=== PATIENT | male | born 1955 | race Two or more races ===

== ENCOUNTER → 2017-05-30 | Outpatient (CLI) | payer BC ==
[2017-05-30 13:31] LABS: Basophils # (auto) 0 uL; Basophils % (auto) 0.5 % (0.0-2.0); Eosinophils # (auto) 0.3 uL; Eosinophils % (auto) 2.9 % (0.0-7.0); Hematocrit 50.9 % (41.0-53.0); Hemoglobin 17.2 g/dL (13.5-17.5); Lymphocytes # (auto) 2.5 uL; Mean Corpuscular Hemoglobin 29.2 pg (28.0-32.0); Mean Corpuscular Hgb Conc. 33.8 g/dL (32.0-36.0); Mean Corpuscular Volume 86.4 fL (80.0-100.0); Monocytes # (auto) 0.6 uL; Monocytes % (auto) 6.4 % (0.0-12.0); Neutrophils # (auto) 5.5 uL; Neutrophils % (auto) 62.2 % (37.0-80.0); Platelet Count (auto) 187 10^3/uL (140-450); Red Cell Distribution Width 15.5 % (11.8-14.3); White Blood Cell 8.9 10^3/uL (4.4-10.8)
[2017-05-30 13:49] LABS: Urine Bilirubin Negative (Negative); Urine Blood Negative /uL (Negative); Urine Color Yellow (Yellow); Urine Glucose 4+ mg/dL (Normal); Urine Ketone 1+ (Negative); Urine Nitrite Negative (Negative); Urine RBC <1 /hpf (0 - 3); Urine Urobilinogen Normal (Negative)
[2017-05-30 14:03] LABS: Albumin 4.3 g/dL (3.4-5.0); Bilirubin, Total 0.7 mg/dL (0.2-1.0); Calcium 9.4 mg/dL (8.5-10.1); Total Protein 8.8 g/dL (6.4-8.2)
== END | disposition home or self-care (01) ==
LOC: LAB 12:59
PROVIDERS: ATTEND Internal Medicine
DX: E10.9 Type 1 diabetes mellitus without complications (principal); I10 Essential (primary) hypertension; E78.00 Pure hypercholesterolemia, unspecified; Z79.899 Other long term (current) drug therapy
CPT/HCPCS: 36415; 80053; 80061; 81001; 82043; 82607; 83036; 84146; 84153; 84403; 84439; 84443; 85025; 85652

== ENCOUNTER → 2017-08-11 | Outpatient (CLI) | payer BC ==
[~2017-08-11] MED LIST: ASPI-231 PO; ATOR1TAB PO; ATOR40TA52 PO; CARV3.1240 PO; ENAL10TA86 PO; FURO40TA4 PO; GLIP-116 PO; METF-371 PO; NITR0.4S29 SL; RANO1000 PO
[2017-08-11 11:25] LABS: Albumin 3.9 g/dL (3.4-5.0); BUN/Creatinine Ratio 18.4; Bilirubin, Total 0.8 mg/dL (0.2-1.0); CRP High Sensitivity 0.78 mg/dL (< 0.3); Potassium 4.3 mmol/L (3.5-5.1); Total Protein 8.1 g/dL (6.4-8.2)
[2017-08-11 11:58] LABS: Urine Bacteria NONE SEEN /hpf (None Seen); Urine Blood Negative /uL (Negative); Urine Specific Gravity 1.029 (1.001-1.035); Urine WBC 8 /hpf (0 - 3)
== END | disposition home or self-care (01) ==
LOC: LAB 10:31
PROVIDERS: ATTEND Internal Medicine
DX: I10 Essential (primary) hypertension (principal); N48.1 Balanitis; N47.1 Phimosis
CPT/HCPCS: 36415; 80053; 80061; 81001; 83036; 84153; 84443; 86141

== ENCOUNTER → 2017-09-07 | Outpatient (CLI) | payer BC ==
[~2017-09-07] MED LIST changes: +OPTISON 3ml Vial for INJ IV ONE
[2017-09-07 10:27] VITALS: BP 175/98
== END | disposition home or self-care (01) ==
LOC: XY 08:11
PROVIDERS: ATTEND Internal Medicine
DX: I25.10 Atherosclerotic heart disease of native coronary artery without angina pectoris (principal)
CPT/HCPCS: 93017; 93306; Q9956

== ENCOUNTER → 2017-10-12 | Outpatient (CLI) | payer BC ==
[~2017-10-12] MED LIST changes: -OPTISON 3ml Vial for INJ IV ONE
[2017-10-12 10:42] LABS: Basophils # (auto) 0 uL; Basophils % (auto) 0.3 % (0.0-2.0); Eosinophils # (auto) 0.4 uL; Eosinophils % (auto) 3.5 % (0.0-7.0); Hemoglobin 15.7 g/dL (13.5-17.5); Lymphocytes # (auto) 2.3 uL; Lymphocytes % (auto) 21.8 % (10.0-50.0); Mean Corpuscular Hemoglobin 29.3 pg (28.0-32.0); Mean Corpuscular Hgb Conc. 34.2 g/dL (32.0-36.0); Mean Corpuscular Volume 85.7 fL (80.0-100.0); Monocytes # (auto) 0.7 uL; Neutrophils # (auto) 7.1 uL; Neutrophils % (auto) 67.4 % (37.0-80.0); Platelet Count (auto) 231 10^3/uL (140-450); Red Blood Cells 5.37 10^6/uL (4.5-5.90); Red Cell Distribution Width 14.4 % (11.8-14.3); White Blood Cell 10.5 10^3/uL (4.4-10.8)
[2017-10-12 10:50] LABS: INR 1.22 (0.9-1.15); Partial Thromboplastin Time 30.7 sec (22.64-33.71); Prothrombin Time 13.3 sec (9.37-12.3)
[2017-10-12 11:45] LABS: Albumin 3.9 g/dL (3.4-5.0); BUN/Creatinine Ratio 15.6; Bilirubin, Total 0.6 mg/dL (0.2-1.0); Calcium 8.7 mg/dL (8.5-10.1); Total Protein 8.1 g/dL (6.4-8.2)
== END | disposition home or self-care (01) ==
LOC: LAB 10:03
PROVIDERS: ATTEND Internal Medicine
DX: Z01.812 Encounter for preprocedural laboratory examination (principal); I20.9 Angina pectoris, unspecified; I25.9 Chronic ischemic heart disease, unspecified; E10.9 Type 1 diabetes mellitus without complications
CPT/HCPCS: 36415; 80053; 85025; 85610; 85730

== ENCOUNTER 2017-10-13 06:55 | Inpatient (IN) | payer BC ==
[~2017-10-13] VITALS: Ht 170.2 cm; Wt 98.0 kg
[~2017-10-13 06:55] MED LIST changes: -ATOR1TAB PO; -FURO40TA4 PO
[2017-10-13] MEDS ORDERED: IODIXANOL 320MG/ML 100ML BTL IV ONE ×2 (07:49→08:25)
[2017-10-13] MEDS ORDERED: LIDOCAINE HCL 2 %PF INJ 10ML AMP IJ ONE (07:49)
[2017-10-13] MEDS ORDERED: MIDAZOLAM HCL 1MG/1ML-2 ML VIAL ONE (07:53)
[2017-10-13] MEDS ORDERED: SODIUM CHL 0.9% 50 ML ONE (07:53)
[2017-10-13] MEDS ORDERED: fentaNYL CITRATE 100 MCG/2 ML VL ONE (07:53)
[2017-10-13] MEDS ORDERED: ANGIOMAX 250 MG VIAL IV ONE (07:54)
[2017-10-13] MEDS ORDERED: HEPARIN SODIUM (PORCINE) 5000 UNITS/ML 1ML VIAL ONE (09:03)
[2017-10-13] MEDS ORDERED: SODIUM CHLORIDE 0.9% 1,000 ML IV SCH (09:26)
[2017-10-13] MEDS ORDERED: HYDROcodone-ACET 5/325MG TAB PO PRN (09:30)
[2017-10-13] MEDS ORDERED: MORPHINE SULF INJ 2 MG/ML SYRINGE 1ML IV PRN (09:30)
[2017-10-13] MEDS ORDERED: ONDANSETRON HCL 4 MG/2 ML VIAL IV PRN (09:30)
[2017-10-13] MEDS ORDERED: ZOLPIDEM TARTRATE 5 MG TAB PO PRN (09:30)
[2017-10-13] MEDS ORDERED: LORazepam 0.5 MG TAB PO PRN (09:30)
[2017-10-13] MEDS ORDERED: ACETAMINOPHEN 500 MG TAB PO PRN (09:30)
[2017-10-13] MEDS ORDERED: NITROGLYCERIN 0.4 MG SL TAB SL PRN ×3 (09:30→10:15)
[2017-10-13] MEDS ORDERED: MORPHINE SULFATE 4 MG/ML SYR/VIAL IV PRN ×2 (09:30→10:15)
[2017-10-13] MEDS ORDERED: HEPARIN DRIP/D5W 100UNITS/ML 250 ML IV SCH (09:41)
[2017-10-13] MEDS ORDERED: DEXTROSE (50%) 50ML SYRG IV PRN (09:45)
[2017-10-13] MEDS ORDERED: NITROGLYCERIN 0.4 MG SL TAB SL SCH (09:45)
[2017-10-13] MEDS ORDERED: PATIENTS OWN MEDICATION (Glipizide 10 MG) PO SCH (10:00)
[2017-10-13] MEDS ORDERED: ceFAZolin 1GM/50ML 50 ML IV ONE (10:15)
[2017-10-13] MEDS ORDERED: ACCU-CHEK COMFORT CURVE STRIP VI ONE ×2 (10:15→22:00)
[2017-10-13] MEDS ORDERED: VANCOMYCIN 1GM/250ML 250 ML IV ONE ×2 (10:15→22:00)
[2017-10-13] MEDS: ENALAPRIL MALEATE 10 MG TAB PO SCH (11:15)
[2017-10-13] MEDS: RANOLAZINE ER 500 MG TAB PO SCH ×2 (11:15→11:22)
[2017-10-13] MEDS: CARVEDILOL 3.125 MG TAB PO SCH ×2 (11:15→21:47)
[2017-10-13] MEDS ORDERED: OPTISON 3ml Vial for INJ IV ONE (11:18)
[2017-10-13] MEDS: ACCU-CHEK COMFORT CURVE STRIP VI SCH ×3 (11:30→22:00)
[2017-10-13] MEDS: InsuLIN REG 1unit/0.01ml Soln (100units/ml) SC SCH ×3 (12:00→21:52)
[2017-10-13 14:31] VITALS: BP 126/77
[2017-10-13 14:48] LABS: Basophils # (auto) 0 uL; Basophils % (auto) 0.5 % (0.0-2.0); Eosinophils # (auto) 0.3 uL; Eosinophils % (auto) 4.3 % (0.0-7.0); Hematocrit 43.5 % (41.0-53.0); Hemoglobin 14.7 g/dL (13.5-17.5); Lymphocytes # (auto) 1.9 uL; Lymphocytes % (auto) 23.8 % (10.0-50.0); Mean Corpuscular Hemoglobin 29.3 pg (28.0-32.0); Mean Corpuscular Hgb Conc. 33.8 g/dL (32.0-36.0); Mean Corpuscular Volume 86.5 fL (80.0-100.0); Monocytes # (auto) 0.7 uL; Monocytes % (auto) 8.6 % (0.0-12.0); Neutrophils % (auto) 62.8 % (37.0-80.0); Nucleated Red Blood Cells % 0.1 %; Platelet Count (auto) 215 10^3/uL (140-450); Red Blood Cells 5.03 10^6/uL (4.5-5.90); Red Cell Distribution Width 14.4 % (11.8-14.3); White Blood Cell 7.9 10^3/uL (4.4-10.8)
[2017-10-13 15:05] LABS: BUN/Creatinine Ratio 14.2
[2017-10-13 15:14] LABS: INR 1.23 (0.9-1.15); Partial Thromboplastin Time 31.5 sec (22.64-33.71); Prothrombin Time 13.4 sec (9.37-12.3)
[2017-10-13 15:55] VITALS: BP 130/77
[2017-10-13 20:00] VITALS: BP_SYST 108; BP_SYST 134; BP_DIAS 65; BP_DIAS 79
[2017-10-13] MEDS: ATORVASTATIN 20 MG TAB PO SCH (21:46)
[2017-10-13] MEDS ORDERED: ASCORBIC ACID 500 MG TAB PO ONE ×2 (22:00)
[2017-10-13] MEDS ORDERED: AZTREONAM 1GM INJ 1 GM in D5W 5% 50 ML IV ONE (22:00)
[2017-10-14 02:00] LABS: INR 1.27 (0.9-1.15); Partial Thromboplastin Time 33.4 sec (22.64-33.71); Prothrombin Time 13.9 sec (9.37-12.3)
[2017-10-14] MEDS ORDERED: CHLORHEXIDINE 4% TOPICAL soln 118ML TOP ONE ×2 (02:00)
[2017-10-14] MEDS ORDERED: HEPARIN SODIUM (PORCINE) 5000 UNITS/ML 1ML VIAL IV ONE (02:15)
[2017-10-14 05:00] VITALS: BP 123/79
[2017-10-14] MEDS: InsuLIN REG 1unit/0.01ml Soln (100units/ml) SC SCH ×4 (05:50→21:43)
[2017-10-14] MEDS: ACCU-CHEK COMFORT CURVE STRIP VI SCH ×4 (05:51→21:35)
[2017-10-14 08:17] LABS: Urine Bacteria NONE SEEN /hpf (None Seen); Urine Blood Negative /uL (Negative); Urine Specific Gravity 1.018 (1.001-1.035); Urine WBC 1 /hpf (0 - 3)
[2017-10-14 09:00] VITALS: BP 150/86
[2017-10-14] MEDS ORDERED: glipiZIDE 5 MG TAB PO SCH (10:00)
[2017-10-14] MEDS: CARVEDILOL 3.125 MG TAB PO SCH ×2 (10:05→21:34)
[2017-10-14] MEDS: ENALAPRIL MALEATE 10 MG TAB PO SCH (10:07)
[2017-10-14] MEDS: glipiZIDE 5 MG TAB PO SCH (10:09)
[2017-10-14] MEDS ORDERED: CHLORHEXIDINE 0.12% ORAL rinse 473ML MT ONE ×2 (10:15→22:00)
[2017-10-14 10:29] LABS: INR 1.24 (0.9-1.15); Partial Thromboplastin Time 45.7 sec (22.64-33.71); Prothrombin Time 13.5 sec (9.37-12.3)
[2017-10-14 11:23] VITALS: BP 149/83
[2017-10-14] MEDS: HEPARIN DRIP/D5W 100UNITS/ML 250 ML IV SCH (11:23)
[2017-10-14] MEDS: RANOLAZINE ER 500 MG TAB PO SCH ×2 (13:37→21:34)
[2017-10-14 16:18] VITALS: BP 152/85
[2017-10-14 17:16] LABS: INR 1.24 (0.9-1.15); Partial Thromboplastin Time 53.9 sec (22.64-33.71); Prothrombin Time 13.5 sec (9.37-12.3)
[2017-10-14] MEDS: ATORVASTATIN 20 MG TAB PO SCH (21:34)
[2017-10-14 22:00] VITALS: BP 135/77
[2017-10-14 23:52] LABS: INR 1.28 (0.9-1.15); Partial Thromboplastin Time 58.8 sec (22.64-33.71)
[2017-10-15] MEDS: HEPARIN DRIP/D5W 100UNITS/ML 250 ML IV SCH ×2 (03:20→18:08)
[2017-10-15 05:00] VITALS: BP 119/79
[2017-10-15 06:19] LABS: Basophils # (auto) 0.1 uL; Basophils % (auto) 0.6 % (0.0-2.0); Eosinophils # (auto) 0.4 uL; Eosinophils % (auto) 3.5 % (0.0-7.0); Hematocrit 43.9 % (41.0-53.0); Hemoglobin 15.3 g/dL (13.5-17.5); Lymphocytes # (auto) 2.9 uL; Lymphocytes % (auto) 25.4 % (10.0-50.0); Mean Corpuscular Hemoglobin 29.9 pg (28.0-32.0); Mean Corpuscular Hgb Conc. 34.8 g/dL (32.0-36.0); Mean Corpuscular Volume 85.9 fL (80.0-100.0); Monocytes # (auto) 0.9 uL; Monocytes % (auto) 7.7 % (0.0-12.0); Neutrophils # (auto) 7.1 uL; Neutrophils % (auto) 62.8 % (37.0-80.0); Platelet Count (auto) 203 10^3/uL (140-450); Red Blood Cells 5.11 10^6/uL (4.5-5.90); Red Cell Distribution Width 14.4 % (11.8-14.3); White Blood Cell 11.3 10^3/uL (4.4-10.8)
[2017-10-15] MEDS: ACCU-CHEK COMFORT CURVE STRIP VI SCH ×4 (06:19→21:53)
[2017-10-15] MEDS: InsuLIN REG 1unit/0.01ml Soln (100units/ml) SC SCH ×4 (06:22→22:00)
[2017-10-15 06:36] LABS: INR 1.26 (0.9-1.15); Partial Thromboplastin Time 62.7 sec (22.64-33.71); Prothrombin Time 13.8 sec (9.37-12.3)
[2017-10-15 08:00] VITALS: BP 116/78
[2017-10-15] MEDS: glipiZIDE 5 MG TAB PO SCH (10:03)
[2017-10-15] MEDS: CARVEDILOL 3.125 MG TAB PO SCH ×2 (10:04→21:53)
[2017-10-15] MEDS: RANOLAZINE ER 500 MG TAB PO SCH ×2 (10:04→21:53)
[2017-10-15] MEDS: ENALAPRIL MALEATE 10 MG TAB PO SCH (10:04)
[2017-10-15 12:00] VITALS: BP 129/78
[2017-10-15 17:30] VITALS: BP 141/86
[2017-10-15 20:00] VITALS: BP 133/86
[2017-10-15] MEDS: ATORVASTATIN 20 MG TAB PO SCH (21:53)
[2017-10-15 22:00] VITALS: BP 133/86
[2017-10-16] VITALS (18 sets, daily range): BP systolic 115–149; BP diastolic 63–86
[2017-10-16 05:38] LABS: Basophils # (auto) 0 uL; Basophils % (auto) 0.3 % (0.0-2.0); Eosinophils # (auto) 0.4 uL; Eosinophils % (auto) 3.3 % (0.0-7.0); Hematocrit 45.2 % (41.0-53.0); Hemoglobin 15.5 g/dL (13.5-17.5); Lymphocytes # (auto) 2.4 uL; Lymphocytes % (auto) 21.5 % (10.0-50.0); Mean Corpuscular Hemoglobin 29.3 pg (28.0-32.0); Mean Corpuscular Hgb Conc. 34.2 g/dL (32.0-36.0); Mean Corpuscular Volume 85.6 fL (80.0-100.0); Monocytes # (auto) 0.8 uL; Monocytes % (auto) 6.9 % (0.0-12.0); Neutrophils # (auto) 7.6 uL; Nucleated Red Blood Cells % 0.1 %; Platelet Count (auto) 195 10^3/uL (140-450); Red Blood Cells 5.28 10^6/uL (4.5-5.90); Red Cell Distribution Width 14.5 % (11.8-14.3); White Blood Cell 11.2 10^3/uL (4.4-10.8)
[2017-10-16 05:55] LABS: INR 1.25 (0.9-1.15); Prothrombin Time 13.7 sec (9.37-12.3)
[2017-10-16 05:56] LABS: Partial Thromboplastin Time 85.7 sec (22.64-33.71)
[2017-10-16] MEDS: ACCU-CHEK COMFORT CURVE STRIP VI SCH ×4 (06:05→21:23)
[2017-10-16] MEDS: InsuLIN REG 1unit/0.01ml Soln (100units/ml) SC SCH ×4 (06:05→21:23)
[2017-10-16] MEDS: glipiZIDE 5 MG TAB PO SCH (09:58)
[2017-10-16] MEDS: CARVEDILOL 3.125 MG TAB PO SCH ×2 (09:59→21:19)
[2017-10-16] MEDS: ENALAPRIL MALEATE 10 MG TAB PO SCH (09:59)
[2017-10-16] MEDS: RANOLAZINE ER 500 MG TAB PO SCH ×2 (09:59→21:22)
[2017-10-16] MEDS: HEPARIN DRIP/D5W 100UNITS/ML 250 ML IV SCH (10:12)
[2017-10-16] MEDS ORDERED: FURO40TA4 PO (12:11)
[2017-10-16 13:04] LABS: INR 1.28 (0.9-1.15)
[2017-10-16 13:09] LABS: Partial Thromboplastin Time 81.5 sec (22.64-33.71)
[2017-10-16] MEDS ORDERED: HEPARIN DRIP/D5W 100UNITS/ML 250 ML IV SCH (13:45)
[2017-10-16 20:03] LABS: INR 1.27 (0.9-1.15); Partial Thromboplastin Time 56.8 sec (22.64-33.71); Prothrombin Time 13.9 sec (9.37-12.3)
[2017-10-16] MEDS: ATORVASTATIN 20 MG TAB PO SCH (21:18)
[2017-10-16] MEDS ORDERED: ASCORBIC ACID 500 MG TAB PO ONE (22:00)
[2017-10-17] VITALS (62 sets, daily range): BP systolic 27–155; BP diastolic 14–89
[2017-10-17 01:44] LABS: Basophils # (auto) 0.1 uL; Basophils % (auto) 0.7 % (0.0-2.0); Eosinophils # (auto) 0.4 uL; Eosinophils % (auto) 3.5 % (0.0-7.0); Hematocrit 45.3 % (41.0-53.0); Hemoglobin 15.4 g/dL (13.5-17.5); Lymphocytes % (auto) 28.6 % (10.0-50.0); Mean Corpuscular Hemoglobin 29.3 pg (28.0-32.0); Mean Corpuscular Volume 86.2 fL (80.0-100.0); Monocytes # (auto) 0.8 uL; Monocytes % (auto) 7.7 % (0.0-12.0); Neutrophils # (auto) 6.2 uL; Neutrophils % (auto) 59.5 % (37.0-80.0); Platelet Count (auto) 204 10^3/uL (140-450); Red Blood Cells 5.25 10^6/uL (4.5-5.90); Red Cell Distribution Width 14.3 % (11.8-14.3); White Blood Cell 10.4 10^3/uL (4.4-10.8)
[2017-10-17 02:01] LABS: Albumin 3.7 g/dL (3.4-5.0); Calcium 9.1 mg/dL (8.5-10.1); Potassium 4.3 mmol/L (3.5-5.1)
[2017-10-17 02:03] LABS: INR 1.24 (0.9-1.15); Partial Thromboplastin Time 61.8 sec (22.64-33.71); Prothrombin Time 13.6 sec (9.37-12.3)
[2017-10-17 02:04] LABS: Bilirubin, Total 0.6 mg/dL (0.2-1.0); Total Protein 7.8 g/dL (6.4-8.2)
[2017-10-17] MEDS ORDERED: CHLORHEXIDINE 4% TOPICAL soln 118ML TOP ONE (03:00)
[2017-10-17] MEDS ORDERED: CHLORHEXIDINE 0.12% ORAL rinse 473ML MT ONE (06:00)
[2017-10-17] MEDS ORDERED: LIDOCAINE HCL 2 %PF INJ 10ML AMP IJ ONE (06:31)
[2017-10-17] MEDS ORDERED: NEOMYCIN-BACITRACIN-POLYM 15GM TOP OINT TOP ONE (06:41)
[2017-10-17] MEDS ORDERED: PAPAVERINE HCL 60 MG/2 ML 2ML VIAL ONE (06:41)
[2017-10-17] MEDS ORDERED: HEPARIN 1,000 UNITS/ml 1ML VIAL ONE (06:41)
[2017-10-17] MEDS ORDERED: BACITRACIN INJ 50000 UNIT VIAL ONE (06:41)
[2017-10-17] MEDS: InsuLIN REG 1unit/0.01ml Soln (100units/ml) SC SCH (06:41)
[2017-10-17] MEDS: ACCU-CHEK COMFORT CURVE STRIP VI SCH ×8 (06:41→23:24)
[2017-10-17] MEDS ORDERED: ATROPINE SULFATE 0.4 MG/1 ML VIAL ONE (06:59)
[2017-10-17] MEDS ORDERED: ACCU-CHEK COMFORT CURVE STRIP VI ONE (07:00)
[2017-10-17] MEDS ORDERED: PHENYLEPHRINE HCL 10 MG/ML VL ONE (07:01)
[2017-10-17] MEDS ORDERED: EPINEPHrine HCL 1 MG/10 ML SYRG ONE (07:01)
[2017-10-17] MEDS ORDERED: ALBUMIN 25% IV ONE (07:16)
[2017-10-17] MEDS ORDERED: AZTREONAM 1GM INJ 1 GM in D5W 5% 50 ML IV ONE (08:00)
[2017-10-17] MEDS ORDERED: VANCOMYCIN 1GM/250ML 250 ML IV ONE (08:00)
[2017-10-17] MEDS ORDERED: MIDAZOLAM HCL 1MG/1ML-2 ML VIAL ONE (08:06)
[2017-10-17] MEDS ORDERED: AMINOCAPROIC ACID 5 GM/20 ML VL IV ONE (08:55)
[2017-10-17] MEDS ORDERED: MAGNESIUM SULF 50% 40 MEQ/10 ML VL IV ONE (08:55)
[2017-10-17] MEDS ORDERED: CALCIUM CHLOR(10%) 100MG/ML 10ML SYRINGE IV ONE (08:55)
[2017-10-17] MEDS ORDERED: PHENYLEPHRINE HCL 10 MG/ML VL IV ONE (08:55)
[2017-10-17] MEDS ORDERED: LIDOCAINE 50MG/5ML INJ 5ML SYRINGE IV ONE (08:55)
[2017-10-17] MEDS ORDERED: DEXAMETHASONE SODIUM PHOSP 120 MG/30ml VIAL IV ONE (08:55)
[2017-10-17] MEDS ORDERED: SODIUM BICARBONATE 8.4 % INJ 50ML VIAL IV ONE (08:55)
[2017-10-17] MEDS ORDERED: POTASSIUM CHL 2MEQ/ML 20ML IV ONE (08:55)
[2017-10-17] MEDS ORDERED: ADENOSINE 12 MG/4 ML INJ IV ONE (08:55)
[2017-10-17] MEDS ORDERED: EPINEPHrine HCL 4 MG in D5W 5% 250 ML IV ONE (09:00)
[2017-10-17] MEDS ORDERED: AMINOCAPROIC ACID 10 GM in SODIUM CHL 0.9% 100 ML IV ONE (09:00)
[2017-10-17] MEDS ORDERED: PHENYLEPHRINE INJ 20 MG in SODIUM CHL 0.9% 250 ML IV ONE (09:00)
[2017-10-17] MEDS ORDERED: InsuLIN R (HUMAN) 100 UNITS in SODIUM CHL 0.9% 99 ML IV ONE (09:00)
[2017-10-17] MEDS ORDERED: HEPARIN 30000 UNITS in SODIUM CHLORIDE 0.9% 1000 ML IV ONE (09:00)
[2017-10-17] MEDS ORDERED: VASOPRESSIN 50 UNITS in SODIUM CHL 0.9% 247.5 ML IV ONE (09:00)
[2017-10-17] MEDS ORDERED: AMINOCAPROIC ACID 5 GM in SODIUM CHL 0.9% 250 ML IV ONE (09:00)
[2017-10-17] MEDS ORDERED: NOREPINEPHRINE 8 MG/250ML KIT 250 ML IV ONE (09:00)
[2017-10-17] MEDS ORDERED: fentaNYL CITRATE 100 MCG/2 ML VL ONE (09:13)
[2017-10-17] MEDS ORDERED: PLASMA-LYTE A pH7.4 6,000 ML INJ ONE (11:46)
[2017-10-17 13:37] LABS: Basophils # (auto) 0 uL; Basophils % (auto) 0.1 % (0.0-2.0); Eosinophils # (auto) 0.1 uL; Eosinophils % (auto) 0.8 % (0.0-7.0); Hematocrit 27.7 % (41.0-53.0); Hemoglobin 9.3 g/dL (13.5-17.5); Lymphocytes # (auto) 1.9 uL; Lymphocytes % (auto) 11.6 % (10.0-50.0); Mean Corpuscular Hgb Conc. 33.7 g/dL (32.0-36.0); Monocytes # (auto) 0.4 uL; Monocytes % (auto) 2.6 % (0.0-12.0); Neutrophils # (auto) 13.9 uL; Neutrophils % (auto) 84.9 % (37.0-80.0); Platelet Count (auto) 107 10^3/uL (140-450); Red Blood Cells 3.22 10^6/uL (4.5-5.90); White Blood Cell 16.4 10^3/uL (4.4-10.8)
[2017-10-17] MEDS ORDERED: NITROGLYCERIN 50MG/250ML 250 ML IV SCH (13:45)
[2017-10-17] MEDS ORDERED: AMIODARONE HCL 150 MG in D5W 5% 100 ML IV ONE (13:45)
[2017-10-17] MEDS ORDERED: DEXTROSE (50%) 50ML SYRG IV PRN (13:45)
[2017-10-17] MEDS ORDERED: SODIUM BICARBONATE 8.4% INJ 50ML SYRINGE IV PRN (13:45)
[2017-10-17] MEDS ORDERED: INSULIN DRIP 100 UNIT/100ML 100 ML IV SCH (13:45)
[2017-10-17] MEDS ORDERED: ALBUMIN 5% 250 ML IV PRN (13:45)
[2017-10-17] MEDS ORDERED: ALBUMIN 25% 250 ML IV PRN (13:45)
[2017-10-17] MEDS ORDERED: SODIUM CHLORIDE 0.9% 200 ML IV PRN (13:45)
[2017-10-17] MEDS ORDERED: AMIODARONE HCL 900 MG in DEXTROSE 500 ML IV SCH (13:55)
[2017-10-17] MEDS: ACETYLCYSTEINE 10 %(100MG/ML) SOL 4ML NEB SCH ×2 (14:00→22:25)
[2017-10-17 14:12] LABS: Albumin 3.9 g/dL (3.4-5.0); BUN/Creatinine Ratio 15.2; Calcium 8.4 mg/dL (8.5-10.1); Potassium 4.1 mmol/L (3.5-5.1); Total Protein 5.8 g/dL (6.4-8.2)
[2017-10-17 14:30] LABS: Phosphorus 1.8 mg/dL (2.5-4.90)
[2017-10-17 14:31] LABS: Basophils # (auto) 0 uL; Basophils % (auto) 0.1 % (0.0-2.0); Eosinophils # (auto) 0.1 uL; Eosinophils % (auto) 0.4 % (0.0-7.0); Hematocrit 34.3 % (41.0-53.0); Hemoglobin 11.8 g/dL (13.5-17.5); Lymphocytes # (auto) 1.3 uL; Lymphocytes % (auto) 7.2 % (10.0-50.0); Mean Corpuscular Hemoglobin 29.3 pg (28.0-32.0); Mean Corpuscular Hgb Conc. 34.3 g/dL (32.0-36.0); Mean Corpuscular Volume 85.3 fL (80.0-100.0); Monocytes # (auto) 0.8 uL; Monocytes % (auto) 4.5 % (0.0-12.0); Neutrophils # (auto) 15.5 uL; Neutrophils % (auto) 87.8 % (37.0-80.0); Nucleated Red Blood Cells % 0.1 %; Platelet Count (auto) 136 10^3/uL (140-450); Red Blood Cells 4.02 10^6/uL (4.5-5.90); Red Cell Distribution Width 14.2 % (11.8-14.3); White Blood Cell 17.6 10^3/uL (4.4-10.8)
[2017-10-17 14:46] LABS: Magnesium 4.1 mg/dL (1.6-2.6)
[2017-10-17] MEDS ORDERED: DEXMEDETOMIDINE HCL 400 MCG in D5W 5% 96 ML IV SCH (14:49)
[2017-10-17 14:52] LABS: INR 1.34 (0.9-1.15); Partial Thromboplastin Time 33.4 sec (22.64-33.71); Prothrombin Time 14.7 sec (9.37-12.3)
[2017-10-17 14:59] LABS: BUN/Creatinine Ratio 13.1; Calcium 8.6 mg/dL (8.5-10.1); Magnesium 3.7 mg/dL (1.6-2.6); Potassium 3.8 mmol/L (3.5-5.1)
[2017-10-17 15:06] LABS: Phosphorus 0.9 mg/dL (2.5-4.90)
[2017-10-17] MEDS: ALBUMIN 5% 250 ML IV SCH ×3 (15:37→23:24)
[2017-10-17] MEDS: DOPamine 1600MCG/ML D5W 250 ML IV SCH (16:00)
[2017-10-17] MEDS: PHENYLEPHRINE IV 250 ML IV SCH (16:00)
[2017-10-17] MEDS: NOREPINEPHRINE 8 MG/250ML KIT 250 ML IV SCH (16:01)
[2017-10-17] MEDS: PROPOFOL 100 ML IV SCH ×2 (16:01→23:30)
[2017-10-17] MEDS: SODIUM CHLORIDE 0.9% 1,000 ML IV SCH ×2 (16:02→21:07)
[2017-10-17] MEDS: SODIUM CHLORIDE 0.9% 500 ML IV SCH (16:02)
[2017-10-17] MEDS: NICARDIPINE 25MG/250ML BAG KIT 250 ML IV SCH ×3 (16:02→21:08)
[2017-10-17] MEDS: MILRINONE 20MG/100ML 100 ML IV SCH ×2 (16:03→21:08)
[2017-10-17] MEDS ORDERED: POTASSIUM PHOSPHATE 44 MEQ in D5W 5% 250 ML IV ONE (16:30)
[2017-10-17] MEDS: AMIODARONE HCL 900 MG in DEXTROSE 500 ML IV SCH (19:55)
[2017-10-17] MEDS: AZTREONAM 1GM INJ 1 GM in D5W 5% 50 ML IV SCH (21:09)
[2017-10-17 22:16] LABS: Basophils # (auto) 0 uL; Basophils % (auto) 0.1 % (0.0-2.0); Eosinophils # (auto) 0 uL; Hematocrit 31.9 % (41.0-53.0); Lymphocytes # (auto) 0.7 uL; Mean Corpuscular Hemoglobin 29.6 pg (28.0-32.0); Mean Corpuscular Hgb Conc. 34.5 g/dL (32.0-36.0); Mean Corpuscular Volume 85.7 fL (80.0-100.0); Monocytes # (auto) 0.5 uL; Monocytes % (auto) 3.5 % (0.0-12.0); Neutrophils # (auto) 12.2 uL; Neutrophils % (auto) 91.4 % (37.0-80.0); Nucleated Red Blood Cells % 0.1 %; Platelet Count (auto) 117 10^3/uL (140-450); Red Blood Cells 3.73 10^6/uL (4.5-5.90); Red Cell Distribution Width 14.3 % (11.8-14.3); White Blood Cell 13.3 10^3/uL (4.4-10.8)
[2017-10-17] MEDS ORDERED: MORPHINE SULFATE 4 MG/ML SYR/VIAL ONE (22:20)
[2017-10-17] MEDS ORDERED: METOCLOPRAMIDE HCL 5MG/ml INJ 2ml VIAL IV PRN (22:30)
[2017-10-17] MEDS ORDERED: hydrALAZINE HCL 20 MG/ML VL IV PRN ×2 (22:30)
[2017-10-17] MEDS ORDERED: HYDROcodone-ACET 5/325MG TAB PO PRN (22:30)
[2017-10-17] MEDS ORDERED: PROPRANOLOL HCL 1 MG/ML VIAL IV PRN (22:30)
[2017-10-17] MEDS: IPRATROPIUM BROM 0.5 MG/2.5ML INH SOL NEB SCH (22:30)
[2017-10-17] MEDS ORDERED: FUROSEMIDE 20 MG/2 ML VIAL IV PRN (22:30)
[2017-10-17] MEDS ORDERED: ONDANSETRON HCL 4 MG/2 ML VIAL IV PRN (22:30)
[2017-10-17] MEDS ORDERED: SODIUM PHOSP 20MEQ(15MMOL) IN NS 100 ML IV ONE (23:00)
[2017-10-17] MEDS: VANCOMYCIN 1GM/250ML 250 ML IV SCH (23:24)
[2017-10-17 23:33] LABS: BUN/Creatinine Ratio 14.5; Potassium 3.4 mmol/L (3.5-5.1)
[2017-10-17 23:34] LABS: Calcium 8.5 mg/dL (8.5-10.1)
[2017-10-18] VITALS (82 sets, daily range): BP systolic 0–191; BP diastolic 0–99
[2017-10-18] MEDS: ACCU-CHEK COMFORT CURVE STRIP VI SCH ×12 (00:15→20:00)
[2017-10-18] MEDS: POTASSIUM CHL 20MEQ/100ML 100 ML IV PRN ×7 (00:16→13:39)
[2017-10-18] MEDS: IPRATROPIUM BROM 0.5 MG/2.5ML INH SOL NEB SCH ×6 (00:30→22:03)
[2017-10-18] MEDS: ALBUMIN 5% 250 ML IV SCH (03:35)
[2017-10-18] MEDS: DOPamine 1600MCG/ML D5W 250 ML IV SCH ×2 (03:36→20:17)
[2017-10-18] MEDS: NICARDIPINE 25MG/250ML BAG KIT 250 ML IV SCH ×4 (03:36→19:45)
[2017-10-18] MEDS: MORPHINE SULFATE 4 MG/ML SYR/VIAL IV PRN ×4 (04:10→15:51)
[2017-10-18 04:30] LABS: Basophils # (auto) 0 uL; Basophils % (auto) 0.1 % (0.0-2.0); Eosinophils # (auto) 0 uL; Hemoglobin 10.7 g/dL (13.5-17.5); Lymphocytes # (auto) 0.8 uL; Lymphocytes % (auto) 4.9 % (10.0-50.0); Mean Corpuscular Hemoglobin 29.6 pg (28.0-32.0); Mean Corpuscular Hgb Conc. 34.6 g/dL (32.0-36.0); Mean Corpuscular Volume 85.6 fL (80.0-100.0); Monocytes % (auto) 6.1 % (0.0-12.0); Neutrophils # (auto) 14.7 uL; Neutrophils % (auto) 88.9 % (37.0-80.0); Platelet Count (auto) 128 10^3/uL (140-450); Red Blood Cells 3.63 10^6/uL (4.5-5.90); Red Cell Distribution Width 14.3 % (11.8-14.3); White Blood Cell 16.5 10^3/uL (4.4-10.8)
[2017-10-18 04:47] LABS: Calcium 7.8 mg/dL (8.5-10.1); Magnesium 3.2 mg/dL (1.6-2.6); Phosphorus 4.9 mg/dL (2.5-4.90); Potassium 3.8 mmol/L (3.5-5.1)
[2017-10-18] MEDS: SODIUM CHLORIDE 0.9% 1,000 ML IV SCH ×3 (05:21→21:08)
[2017-10-18] MEDS: AZTREONAM 1GM INJ 1 GM in D5W 5% 50 ML IV SCH ×3 (05:21→21:10)
[2017-10-18] MEDS: PROPOFOL 100 ML IV SCH (05:34)
[2017-10-18] MEDS: ACETYLCYSTEINE 10 %(100MG/ML) SOL 4ML NEB SCH ×3 (06:17→22:03)
[2017-10-18] MEDS ORDERED: DEXTROSE (50%) 50ML SYRG IV PRN (09:45)
[2017-10-18] MEDS: MILRINONE 20MG/100ML 100 ML IV SCH ×2 (09:47→19:48)
[2017-10-18] MEDS ORDERED: CARVEDILOL 3.125 MG TAB PO SCH ×2 (10:00→22:00)
[2017-10-18] MEDS: PANTOPRAZOLE 40 MG/10 ML VIAL IV SCH (10:15)
[2017-10-18] MEDS: CALCIUM GLUC 4.65meq/50ml D5AE 50 ML IV PRN (10:16)
[2017-10-18] MEDS: ASPirin 81 mg TAB PO SCH (11:42)
[2017-10-18] MEDS: NITROGLYCERIN 0.2MG/HR TOPICAL PATCH TD SCH (11:44)
[2017-10-18] MEDS: FUROSEMIDE 40 MG TAB PO SCH ×2 (11:57→17:54)
[2017-10-18] MEDS ORDERED: THROAT LOZENGES(CEPASTAT) MT PRN (12:00)
[2017-10-18] MEDS: VANCOMYCIN 1GM/250ML 250 ML IV SCH (12:43)
[2017-10-18] MEDS: InsuLIN REG 1unit/0.01ml Soln (100units/ml) SC SCH ×3 (12:44→20:00)
[2017-10-18 13:28] LABS: Basophils # (auto) 0 uL; Eosinophils # (auto) 0 uL; Hematocrit 31.3 % (41.0-53.0); Hemoglobin 10.4 g/dL (13.5-17.5); Lymphocytes # (auto) 0.6 uL; Lymphocytes % (auto) 2.9 % (10.0-50.0); Mean Corpuscular Hgb Conc. 33.1 g/dL (32.0-36.0); Mean Corpuscular Volume 87.5 fL (80.0-100.0); Monocytes # (auto) 1.4 uL; Monocytes % (auto) 6.9 % (0.0-12.0); Neutrophils # (auto) 18.1 uL; Neutrophils % (auto) 90.2 % (37.0-80.0); Platelet Count (auto) 119 10^3/uL (140-450); Red Blood Cells 3.58 10^6/uL (4.5-5.90); Red Cell Distribution Width 14.8 % (11.8-14.3); White Blood Cell 20.1 10^3/uL (4.4-10.8)
[2017-10-18 13:30] LABS: Magnesium 2.6 mg/dL (1.6-2.6)
[2017-10-18] MEDS: PHENYLEPHRINE IV 250 ML IV SCH (13:45)
[2017-10-18] MEDS: NOREPINEPHRINE 8 MG/250ML KIT 250 ML IV SCH (13:45)
[2017-10-18] MEDS: SODIUM CHLORIDE 0.9% 500 ML IV SCH (13:48)
[2017-10-18] MEDS ORDERED: CARVEDILOL 3.125 MG TAB PO ONE (14:15)
[2017-10-18] MEDS ORDERED: BENAZEPRIL HCL 10 MG TAB PO ONE (14:15)
[2017-10-18] MEDS: SODIUM FERR GLUC 62.5MG/5ML 125 MG in SODIUM CHL 0.9% 100 ML IV SCH (16:38)
[2017-10-18] MEDS ORDERED: CARVEDILOL 12.5 MG TAB PO ONE (16:45)
[2017-10-18] MEDS: HYDROcodone-ACET 7.5/325MG TAB PO PRN (16:50)
[2017-10-18] MEDS: POTASSIUM CHL 20 Meq TABLET PO SCH ×2 (17:54→22:00)
[2017-10-18] MEDS: Boost Glucose Control 8 Ounces PO SCH (19:00)
[2017-10-18] MEDS: AMIODARONE HCL 900 MG in DEXTROSE 500 ML IV SCH (19:55)
[2017-10-18] MEDS: HYDROcodone-ACET 10/325MG TAB PO PRN (21:09)
[2017-10-18] MEDS: CARVEDILOL 12.5 MG TAB PO SCH (22:00)
[2017-10-19] VITALS (67 sets, daily range): BP systolic 86–123; BP diastolic 27–73
[2017-10-19] MEDS: fentaNYL CITRATE 100 MCG/2 ML VL IV PRN ×4 (00:42→23:35)
[2017-10-19] MEDS: IPRATROPIUM BROM 0.5 MG/2.5ML INH SOL NEB SCH ×6 (02:00→22:25)
[2017-10-19] MEDS: HYDROcodone-ACET 7.5/325MG TAB PO PRN (03:30)
[2017-10-19] MEDS: NICARDIPINE 25MG/250ML BAG KIT 250 ML IV SCH ×5 (03:59→20:45)
[2017-10-19] MEDS: InsuLIN REG 1unit/0.01ml Soln (100units/ml) SC SCH ×7 (03:59→23:35)
[2017-10-19] MEDS: ACCU-CHEK COMFORT CURVE STRIP VI SCH ×6 (03:59→20:00)
[2017-10-19] MEDS: SODIUM CHLORIDE 0.9% 1,000 ML IV SCH ×3 (03:59→21:45)
[2017-10-19] MEDS: MILRINONE 20MG/100ML 100 ML IV SCH ×2 (04:00→16:24)
[2017-10-19 05:22] LABS: Basophils # (auto) 0 uL; Eosinophils # (auto) 0 uL; Hematocrit 29.9 % (41.0-53.0); Lymphocytes # (auto) 1.1 uL; Lymphocytes % (auto) 5.6 % (10.0-50.0); Mean Corpuscular Hemoglobin 29.6 pg (28.0-32.0); Mean Corpuscular Hgb Conc. 33.4 g/dL (32.0-36.0); Mean Corpuscular Volume 88.7 fL (80.0-100.0); Monocytes # (auto) 1.5 uL; Monocytes % (auto) 7.4 % (0.0-12.0); Neutrophils # (auto) 17.3 uL; Platelet Count (auto) 116 10^3/uL (140-450); Red Blood Cells 3.38 10^6/uL (4.5-5.90); Red Cell Distribution Width 15.2 % (11.8-14.3); White Blood Cell 19.8 10^3/uL (4.4-10.8)
[2017-10-19 05:32] LABS: Albumin 3.7 g/dL (3.4-5.0); BUN/Creatinine Ratio 17.6; Calcium 7.7 mg/dL (8.5-10.1); Magnesium 2.3 mg/dL (1.6-2.6); Potassium 4.2 mmol/L (3.5-5.1)
[2017-10-19 05:35] LABS: Bilirubin, Total 0.7 mg/dL (0.2-1.0)
[2017-10-19] MEDS: AZTREONAM 1GM INJ 1 GM in D5W 5% 50 ML IV SCH ×2 (05:51→13:09)
[2017-10-19] MEDS: FUROSEMIDE 40 MG TAB PO SCH ×2 (05:51→17:47)
[2017-10-19] MEDS: CALCIUM GLUC 4.65meq/50ml D5AE 50 ML IV PRN ×3 (05:53→14:38)
[2017-10-19] MEDS: ACETYLCYSTEINE 10 %(100MG/ML) SOL 4ML NEB SCH ×3 (06:50→22:00)
[2017-10-19] MEDS: HYDROcodone-ACET 10/325MG TAB PO PRN ×3 (07:42→21:00)
[2017-10-19] MEDS: Boost Glucose Control 8 Ounces PO SCH ×3 (09:05→19:30)
[2017-10-19] MEDS: PANTOPRAZOLE 40 MG/10 ML VIAL IV SCH (09:57)
[2017-10-19] MEDS: POTASSIUM CHL 20 Meq TABLET PO SCH ×2 (09:58→23:20)
[2017-10-19] MEDS: CARVEDILOL 12.5 MG TAB PO SCH ×2 (09:58→22:00)
[2017-10-19] MEDS: BENAZEPRIL HCL 10 MG TAB PO SCH (09:58)
[2017-10-19] MEDS: NITROGLYCERIN 0.2MG/HR TOPICAL PATCH TD SCH (09:59)
[2017-10-19] MEDS: ASPirin 81 mg TAB PO SCH (10:03)
[2017-10-19] MEDS: DOPamine 1600MCG/ML D5W 250 ML IV SCH (12:39)
[2017-10-19] MEDS: VANCOMYCIN 1GM/250ML 250 ML IV SCH ×2 (12:39)
[2017-10-19] MEDS ORDERED: glipiZIDE 5 MG TAB PO ONE (12:45)
[2017-10-19 13:12] LABS: BUN/Creatinine Ratio 25.6; Calcium 8.3 mg/dL (8.5-10.1); Potassium 4.4 mmol/L (3.5-5.1)
[2017-10-19] MEDS ORDERED: TEMAZEPAM 15 MG CAP PO PRN (13:30)
[2017-10-19] MEDS: SODIUM CHLORIDE 0.9% 500 ML IV SCH (14:38)
[2017-10-19] MEDS: NOREPINEPHRINE 8 MG/250ML KIT 250 ML IV SCH (14:38)
[2017-10-19] MEDS: PHENYLEPHRINE IV 250 ML IV SCH (14:42)
[2017-10-19] MEDS: SODIUM FERR GLUC 62.5MG/5ML 125 MG in SODIUM CHL 0.9% 100 ML IV SCH (16:24)
[2017-10-19] MEDS ORDERED: ALBUMIN 5% 250 ML IV ONE ×2 (17:15→18:15)
[2017-10-19] MEDS ORDERED: CALCIUM CARB 500 MG CHEW TAB PO PRN (18:00)
[2017-10-19] MEDS: AMIODARONE HCL 900 MG in DEXTROSE 500 ML IV SCH (19:55)
[2017-10-20] VITALS (59 sets, daily range): BP systolic 88–119; BP diastolic 54–73
[2017-10-20] MEDS: ACCU-CHEK COMFORT CURVE STRIP VI SCH ×6 (00:30→21:43)
[2017-10-20] MEDS: NICARDIPINE 25MG/250ML BAG KIT 250 ML IV SCH ×5 (01:45→21:45)
[2017-10-20] MEDS: MILRINONE 20MG/100ML 100 ML IV SCH ×2 (01:51→09:47)
[2017-10-20] MEDS: IPRATROPIUM BROM 0.5 MG/2.5ML INH SOL NEB SCH ×6 (02:00→22:12)
[2017-10-20] MEDS: DOPamine 1600MCG/ML D5W 250 ML IV SCH (02:19)
[2017-10-20] MEDS: InsuLIN REG 1unit/0.01ml Soln (100units/ml) SC SCH ×5 (05:30→21:43)
[2017-10-20] MEDS: SODIUM CHLORIDE 0.9% 1,000 ML IV SCH ×3 (05:45→13:45)
[2017-10-20] MEDS: FUROSEMIDE 40 MG TAB PO SCH ×2 (06:19→18:41)
[2017-10-20] MEDS: HYDROcodone-ACET 7.5/325MG TAB PO PRN ×2 (06:20→21:36)
[2017-10-20] MEDS: ACETYLCYSTEINE 10 %(100MG/ML) SOL 4ML NEB SCH ×3 (07:34→22:12)
[2017-10-20 07:36] LABS: Basophils # (auto) 0 uL; Basophils % (auto) 0.1 % (0.0-2.0); Eosinophils # (auto) 0.1 uL; Eosinophils % (auto) 0.3 % (0.0-7.0); Hematocrit 27.8 % (41.0-53.0); Hemoglobin 9.5 g/dL (13.5-17.5); Lymphocytes # (auto) 2.5 uL; Lymphocytes % (auto) 14.1 % (10.0-50.0); Mean Corpuscular Hemoglobin 29.9 pg (28.0-32.0); Mean Corpuscular Hgb Conc. 34.3 g/dL (32.0-36.0); Mean Corpuscular Volume 87.2 fL (80.0-100.0); Monocytes # (auto) 1.6 uL; Monocytes % (auto) 8.8 % (0.0-12.0); Neutrophils # (auto) 13.6 uL; Neutrophils % (auto) 76.7 % (37.0-80.0); Nucleated Red Blood Cells % 0.1 %; Platelet Count (auto) 129 10^3/uL (140-450); Red Blood Cells 3.18 10^6/uL (4.5-5.90); Red Cell Distribution Width 14.5 % (11.8-14.3); White Blood Cell 17.7 10^3/uL (4.4-10.8)
[2017-10-20 07:52] LABS: Calcium 8.2 mg/dL (8.5-10.1); Magnesium 2.4 mg/dL (1.6-2.6); Potassium 4.6 mmol/L (3.5-5.1)
[2017-10-20] MEDS: glipiZIDE 5 MG TAB PO SCH (09:14)
[2017-10-20] MEDS: Boost Glucose Control 8 Ounces PO SCH ×3 (09:14→17:51)
[2017-10-20] MEDS: NITROGLYCERIN 0.2MG/HR TOPICAL PATCH TD SCH (09:46)
[2017-10-20] MEDS: POTASSIUM CHL 20 Meq TABLET PO SCH ×2 (09:47→21:37)
[2017-10-20] MEDS: BENAZEPRIL HCL 10 MG TAB PO SCH (09:47)
[2017-10-20] MEDS: ASPirin 81 mg TAB PO SCH (09:47)
[2017-10-20] MEDS: PANTOPRAZOLE 40 MG/10 ML VIAL IV SCH (09:47)
[2017-10-20] MEDS: NOREPINEPHRINE 8 MG/250ML KIT 250 ML IV SCH ×2 (11:00→13:45)
[2017-10-20] MEDS: SODIUM FERR GLUC 62.5MG/5ML 125 MG in SODIUM CHL 0.9% 100 ML IV SCH (12:10)
[2017-10-20] MEDS ORDERED: METOPROLOL TARTRATE 25 MG TAB PO ONE (12:30)
[2017-10-20] MEDS: HYDROcodone-ACET 10/325MG TAB PO PRN (12:37)
[2017-10-20] MEDS ORDERED: POTASSIUM CHL 20 Meq TABLET PO PRN (13:00)
[2017-10-20] MEDS ORDERED: DEXTROSE (50%) 50ML SYRG IV PRN (13:00)
[2017-10-20] MEDS ORDERED: POTASSIUM CHL 20MEQ/100ML 100 ML IV PRN (13:00)
[2017-10-20] MEDS ORDERED: FUROSEMIDE 20 MG/2 ML VIAL IV PRN (13:00)
[2017-10-20] MEDS ORDERED: hydrALAZINE HCL 20 MG/ML VL IV PRN ×2 (13:00)
[2017-10-20] MEDS ORDERED: PROPRANOLOL HCL 1 MG/ML VIAL IV PRN (13:00)
[2017-10-20] MEDS ORDERED: ONDANSETRON HCL 4 MG/2 ML VIAL IV PRN (13:00)
[2017-10-20] MEDS ORDERED: METOCLOPRAMIDE HCL 5MG/ml INJ 2ml VIAL IV PRN ×2 (13:00→17:00)
[2017-10-20] MEDS ORDERED: fentaNYL CITRATE 100 MCG/2 ML VL IV PRN (13:00)
[2017-10-20] MEDS ORDERED: ZOLPIDEM TARTRATE 5 MG TAB PO PRN (13:00)
[2017-10-20] MEDS ORDERED: CALCIUM GLUC 4.65meq/50ml D5AE 50 ML IV ONE (13:15)
[2017-10-20] MEDS: SODIUM CHLORIDE 0.9% 500 ML IV SCH (13:45)
[2017-10-20] MEDS: PHENYLEPHRINE IV 250 ML IV SCH (13:45)
[2017-10-20] MEDS ORDERED: ACCU-CHEK COMFORT CURVE STRIP VI SCH (14:00)
[2017-10-20] MEDS ORDERED: fentaNYL CITRATE 100 MCG/2 ML VL IV ONE (15:30)
[2017-10-20] MEDS: ALBUMIN 25% 50 ML IV SCH ×2 (16:05)
[2017-10-20] MEDS ORDERED: HYDROcodone-ACET 10/325MG TAB PO PRN (16:15)
[2017-10-20] MEDS ORDERED: ACETAMINOPHEN IV 1000 MG/100ML (10MG/ML) IV PRN (16:15)
[2017-10-20] MEDS ORDERED: MORPHINE SULFATE 4 MG/ML SYR/VIAL IV PRN ×2 (16:30)
[2017-10-20] MEDS: SENNA 8.6 MG TAB PO PRN (17:10)
[2017-10-20] MEDS ORDERED: ATOR1TAB PO (17:47)
[2017-10-20] MEDS: METOCLOPRAMIDE HCL 10 MG/10ml ORAL soln PO PRN (18:41)
[2017-10-20] MEDS: AMIODARONE HCL 900 MG in DEXTROSE 500 ML IV SCH (19:55)
[2017-10-20] MEDS: ASCORBIC ACID 500 MG TAB PO SCH (21:36)
[2017-10-20] MEDS: DOCUSATE SOD 100 MG CAP PO SCH (21:37)
[2017-10-20] MEDS: ATORVASTATIN 20 MG TAB PO SCH (21:37)
[2017-10-20] MEDS ORDERED: POTASSIUM CHL 20 Meq TABLET PO SCH (22:00)
[2017-10-20] MEDS ORDERED: METOPROLOL TARTRATE 25 MG TAB PO SCH (22:00)
[2017-10-21] VITALS (40 sets, daily range): BP systolic 86–130; BP diastolic 52–95
[2017-10-21] MEDS: IPRATROPIUM BROM 0.5 MG/2.5ML INH SOL NEB SCH ×6 (02:00→22:20)
[2017-10-21] MEDS: NICARDIPINE 25MG/250ML BAG KIT 250 ML IV SCH ×3 (02:45→11:59)
[2017-10-21 03:42] LABS: Basophils # (auto) 0 uL; Basophils % (auto) 0.1 % (0.0-2.0); Eosinophils # (auto) 0.2 uL; Eosinophils % (auto) 1.9 % (0.0-7.0); Hematocrit 25.8 % (41.0-53.0); Hemoglobin 8.7 g/dL (13.5-17.5); Lymphocytes # (auto) 1.9 uL; Mean Corpuscular Hemoglobin 29.7 pg (28.0-32.0); Mean Corpuscular Hgb Conc. 33.9 g/dL (32.0-36.0); Mean Corpuscular Volume 87.6 fL (80.0-100.0); Monocytes # (auto) 1.1 uL; Monocytes % (auto) 9.1 % (0.0-12.0); Neutrophils # (auto) 8.8 uL; Neutrophils % (auto) 72.9 % (37.0-80.0); Platelet Count (auto) 150 10^3/uL (140-450); Red Blood Cells 2.94 10^6/uL (4.5-5.90); Red Cell Distribution Width 14.6 % (11.8-14.3); White Blood Cell 12.1 10^3/uL (4.4-10.8)
[2017-10-21 04:04] LABS: Potassium 4.2 mmol/L (3.5-5.1)
[2017-10-21 04:10] LABS: Albumin 3.7 g/dL (3.4-5.0); BUN/Creatinine Ratio 31.8; Calcium 8.3 mg/dL (8.5-10.1); Magnesium 2.6 mg/dL (1.6-2.6)
[2017-10-21 04:21] LABS: Bilirubin, Total 0.8 mg/dL (0.2-1.0); Total Protein 6.7 g/dL (6.4-8.2)
[2017-10-21] MEDS: ACETYLCYSTEINE 10 %(100MG/ML) SOL 4ML NEB SCH ×3 (06:09→22:20)
[2017-10-21] MEDS: HYDROcodone-ACET 7.5/325MG TAB PO PRN (06:40)
[2017-10-21] MEDS: FUROSEMIDE 40 MG TAB PO SCH (06:40)
[2017-10-21] MEDS: InsuLIN REG 1unit/0.01ml Soln (100units/ml) SC SCH ×5 (06:43→22:00)
[2017-10-21] MEDS: ACCU-CHEK COMFORT CURVE STRIP VI SCH ×4 (06:43→22:00)
[2017-10-21] MEDS: glipiZIDE 5 MG TAB PO SCH (06:50)
[2017-10-21] MEDS: SODIUM CHLORIDE 0.9% 1,000 ML IV SCH (06:51)
[2017-10-21] MEDS: ALBUMIN 25% 50 ML IV SCH (08:24)
[2017-10-21] MEDS: Boost Glucose Control 8 Ounces PO SCH ×3 (08:24→17:56)
[2017-10-21] MEDS: POTASSIUM CHL 20 Meq TABLET PO SCH (09:17)
[2017-10-21] MEDS: SENNA 8.6 MG TAB PO PRN (09:18)
[2017-10-21] MEDS: ASPirin 81 mg TAB PO SCH (09:20)
[2017-10-21] MEDS: ASCORBIC ACID 500 MG TAB PO SCH ×2 (09:20→21:16)
[2017-10-21] MEDS: DOCUSATE SOD 100 MG CAP PO SCH ×2 (09:20→21:16)
[2017-10-21] MEDS: NITROGLYCERIN 0.4MG/HR TOPICAL PATCH TD SCH (09:21)
[2017-10-21] MEDS: PANTOPRAZOLE 40 MG/10 ML VIAL IV SCH (09:22)
[2017-10-21] MEDS: METOCLOPRAMIDE HCL 10 MG/10ml ORAL soln PO PRN (09:22)
[2017-10-21] MEDS ORDERED: CALCIUM GLUC 4.65meq/50ml D5AE 50 ML IV ONE (09:30)
[2017-10-21] MEDS ORDERED: diphenhdrAMINE HCL 25 MG CAP PO PRN (09:45)
[2017-10-21] MEDS: METOPROLOL TARTRATE 25 MG TAB PO SCH ×2 (10:00→21:17)
[2017-10-21] MEDS: SODIUM FERR GLUC 62.5MG/5ML 125 MG in SODIUM CHL 0.9% 100 ML IV SCH (11:46)
[2017-10-21] MEDS: SODIUM CHLORIDE 0.9% 500 ML IV SCH (11:59)
[2017-10-21] MEDS ORDERED: EPOETIN ALFA 4,000 UNIT/ML VL SC ONE (14:00)
[2017-10-21] MEDS: metFORMIN HYDROCHLORIDE 500 MG TAB PO SCH (17:57)
[2017-10-21] MEDS: AMIODARONE HCL 900 MG in DEXTROSE 500 ML IV SCH (19:55)
[2017-10-21] MEDS: ATORVASTATIN 20 MG TAB PO SCH (21:16)
[2017-10-22] VITALS (7 sets, daily range): BP systolic 103–112; BP diastolic 64–71
[2017-10-22] MEDS: IPRATROPIUM BROM 0.5 MG/2.5ML INH SOL NEB SCH ×7 (02:00→22:54)
[2017-10-22] MEDS: SODIUM CHLORIDE 0.9% 1,000 ML IV SCH ×2 (05:00→23:09)
[2017-10-22 05:41] LABS: Basophils # (auto) 0 uL; Basophils % (auto) 0.3 % (0.0-2.0); Eosinophils # (auto) 0.3 uL; Eosinophils % (auto) 2.8 % (0.0-7.0); Hematocrit 28.6 % (41.0-53.0); Hemoglobin 9.8 g/dL (13.5-17.5); Lymphocytes % (auto) 17.3 % (10.0-50.0); Mean Corpuscular Hemoglobin 29.8 pg (28.0-32.0); Mean Corpuscular Hgb Conc. 34.2 g/dL (32.0-36.0); Mean Corpuscular Volume 87.3 fL (80.0-100.0); Monocytes # (auto) 1.2 uL; Monocytes % (auto) 10.7 % (0.0-12.0); Neutrophils # (auto) 7.9 uL; Neutrophils % (auto) 68.9 % (37.0-80.0); Platelet Count (auto) 195 10^3/uL (140-450); Red Blood Cells 3.28 10^6/uL (4.5-5.90); Red Cell Distribution Width 14.4 % (11.8-14.3); White Blood Cell 11.5 10^3/uL (4.4-10.8)
[2017-10-22 06:12] LABS: Albumin 3.5 g/dL (3.4-5.0); BUN/Creatinine Ratio 22.4; Bilirubin, Total 0.7 mg/dL (0.2-1.0); Magnesium 2.5 mg/dL (1.6-2.6); Total Protein 6.6 g/dL (6.4-8.2)
[2017-10-22] MEDS: ACCU-CHEK COMFORT CURVE STRIP VI SCH ×4 (06:42→21:21)
[2017-10-22] MEDS: ACETYLCYSTEINE 10 %(100MG/ML) SOL 4ML NEB SCH ×3 (06:42→22:10)
[2017-10-22] MEDS: InsuLIN REG 1unit/0.01ml Soln (100units/ml) SC SCH ×4 (07:04→21:21)
[2017-10-22] MEDS: glipiZIDE 5 MG TAB PO SCH (07:10)
[2017-10-22] MEDS: metFORMIN HYDROCHLORIDE 500 MG TAB PO SCH ×2 (07:10→18:16)
[2017-10-22] MEDS: Boost Glucose Control 8 Ounces PO SCH ×3 (08:10→18:16)
[2017-10-22] MEDS: PANTOPRAZOLE 40 MG/10 ML VIAL IV SCH (09:38)
[2017-10-22] MEDS: FUROSEMIDE 40 MG TAB PO SCH (09:39)
[2017-10-22] MEDS: DOCUSATE SOD 100 MG CAP PO SCH ×2 (09:39→21:21)
[2017-10-22] MEDS: ASCORBIC ACID 500 MG TAB PO SCH ×2 (09:39→21:20)
[2017-10-22] MEDS: POTASSIUM CHL 20 Meq TABLET PO SCH (09:40)
[2017-10-22] MEDS: ASPirin 81 mg TAB PO SCH (09:40)
[2017-10-22] MEDS: METOPROLOL TARTRATE 25 MG TAB PO SCH ×2 (09:40→21:20)
[2017-10-22] MEDS: NITROGLYCERIN 0.4MG/HR TOPICAL PATCH TD SCH (09:46)
[2017-10-22] MEDS: SODIUM CHLORIDE 0.9% 500 ML IV SCH (11:25)
[2017-10-22] MEDS: SODIUM FERR GLUC 62.5MG/5ML 125 MG in SODIUM CHL 0.9% 100 ML IV SCH (11:34)
[2017-10-22] MEDS ORDERED: traMADol HCL 50 MG TAB PO PRN (13:15)
[2017-10-22] MEDS ORDERED: MILK OF MAGNESIA 30ML SUSP PO PRN (13:15)
[2017-10-22] MEDS ORDERED: MILK OF MAGNESIA 30ML SUSP PO ONE (13:15)
[2017-10-22] MEDS ORDERED: diphenhdrAMINE HCL 25 MG CAP PO PRN (13:15)
[2017-10-22] MEDS: AMIODARONE HCL 900 MG in DEXTROSE 500 ML IV SCH (19:55)
[2017-10-22] MEDS: ATORVASTATIN 20 MG TAB PO SCH (21:21)
[2017-10-23] VITALS: BP 113/75
[2017-10-23 04:00] VITALS: BP 118/72
[2017-10-23] MEDS: InsuLIN REG 1unit/0.01ml Soln (100units/ml) SC SCH ×2 (05:51→11:30)
[2017-10-23] MEDS: ACCU-CHEK COMFORT CURVE STRIP VI SCH ×2 (05:51→11:52)
[2017-10-23] MEDS: ACETYLCYSTEINE 10 %(100MG/ML) SOL 4ML NEB SCH ×2 (06:00→13:45)
[2017-10-23] MEDS: IPRATROPIUM BROM 0.5 MG/2.5ML INH SOL NEB SCH ×3 (06:00→13:45)
[2017-10-23 06:04] LABS: Potassium 4.1 mmol/L (3.5-5.1)
[2017-10-23 06:08] LABS: Albumin 3.6 g/dL (3.4-5.0); BUN/Creatinine Ratio 22.8; Calcium 8.7 mg/dL (8.5-10.1); Magnesium 2.4 mg/dL (1.6-2.6)
[2017-10-23 06:10] LABS: Bilirubin, Total 0.9 mg/dL (0.2-1.0); Total Protein 7.2 g/dL (6.4-8.2)
[2017-10-23 06:36] LABS: Basophils # (auto) 0 uL; Basophils % (auto) 0.2 % (0.0-2.0); Eosinophils # (auto) 0.5 uL; Eosinophils % (auto) 3.8 % (0.0-7.0); Hematocrit 32.4 % (41.0-53.0); Lymphocytes % (auto) 15.4 % (10.0-50.0); Mean Corpuscular Hemoglobin 29.5 pg (28.0-32.0); Mean Corpuscular Hgb Conc. 33.8 g/dL (32.0-36.0); Mean Corpuscular Volume 87.1 fL (80.0-100.0); Monocytes # (auto) 1.3 uL; Monocytes % (auto) 10.1 % (0.0-12.0); Neutrophils # (auto) 9.1 uL; Neutrophils % (auto) 70.5 % (37.0-80.0); Platelet Count (auto) 273 10^3/uL (140-450); Red Blood Cells 3.72 10^6/uL (4.5-5.90); Red Cell Distribution Width 14.3 % (11.8-14.3)
[2017-10-23] MEDS: glipiZIDE 5 MG TAB PO SCH (07:05)
[2017-10-23] MEDS: metFORMIN HYDROCHLORIDE 500 MG TAB PO SCH (07:05)
[2017-10-23] MEDS: Boost Glucose Control 8 Ounces PO SCH ×2 (08:00→12:09)
[2017-10-23] MEDS: ASPirin 81 mg TAB PO SCH (10:27)
[2017-10-23] MEDS: PANTOPRAZOLE 40 MG/10 ML VIAL IV SCH (10:27)
[2017-10-23] MEDS: DOCUSATE SOD 100 MG CAP PO SCH (10:27)
[2017-10-23] MEDS: FUROSEMIDE 40 MG TAB PO SCH (10:28)
[2017-10-23] MEDS: POTASSIUM CHL 20 Meq TABLET PO SCH (10:28)
[2017-10-23] MEDS: METOPROLOL TARTRATE 25 MG TAB PO SCH (10:29)
[2017-10-23] MEDS: ASCORBIC ACID 500 MG TAB PO SCH (10:29)
[2017-10-23] MEDS: NITROGLYCERIN 0.4MG/HR TOPICAL PATCH TD SCH (10:32)
[2017-10-23 12:00] VITALS: BP 111/74
[2017-10-23] MEDS: SODIUM FERR GLUC 62.5MG/5ML 125 MG in SODIUM CHL 0.9% 100 ML IV SCH (12:00)
[2017-10-23 15:55] VITALS: BP 114/72
[2017-10-23 17:15] VITALS: BP 114/72
== END 2017-10-23 17:32 | disposition home or self-care (01) | DRG 233 ==
LOC: CATH 06:55 → WEST WING 06:56 → TELE-WESTW 23:08 → ICU WEST 10-16 16:45 → DOU IN ICU 10-21 16:14
PROVIDERS: ADMIT Internal Medicine Cardiovascular Disease; ATTEND Internal Medicine Cardiovascular Disease
PROC: 4A023N7 Measurement of Cardiac Sampling and Pressure, Left Heart, Percutaneous Approach (ICD-10-PCS; principal; 2017-10-13)
PROC: B2111ZZ Fluoroscopy of Multiple Coronary Arteries using Low Osmolar Contrast (ICD-10-PCS; 2017-10-13)
PROC: B2151ZZ Fluoroscopy of Left Heart using Low Osmolar Contrast (ICD-10-PCS; 2017-10-13)
PROC: 021109W Bypass Coronary Artery, Two Arteries from Aorta with Autologous Venous Tissue, Open Approach (ICD-10-PCS; 2017-10-17)
PROC: 02100Z9 Bypass Coronary Artery, One Artery from Left Internal Mammary, Open Approach (ICD-10-PCS; 2017-10-17)
PROC: 5A02210 Assistance with Cardiac Output using Balloon Pump, Continuous (ICD-10-PCS; 2017-10-17)
PROC: 06BP0ZZ Excision of Right Saphenous Vein, Open Approach (ICD-10-PCS; 2017-10-17)
PROC: 5A1221Z Performance of Cardiac Output, Continuous (ICD-10-PCS; 2017-10-17)
PROC: 5A09357 Assistance with Respiratory Ventilation, Less than 24 Consecutive Hours, Continuous Positive Airway Pressure (ICD-10-PCS; 2017-10-18)
PROC: 5A09357 Assistance with Respiratory Ventilation, Less than 24 Consecutive Hours, Continuous Positive Airway Pressure (ICD-10-PCS; 2017-10-19)
PROC: 5A09357 Assistance with Respiratory Ventilation, Less than 24 Consecutive Hours, Continuous Positive Airway Pressure (ICD-10-PCS; 2017-10-20)
PROC: 30233N1 Transfusion of Nonautologous Red Blood Cells into Peripheral Vein, Percutaneous Approach (ICD-10-PCS; 2017-10-21)
PROC: 5A09357 Assistance with Respiratory Ventilation, Less than 24 Consecutive Hours, Continuous Positive Airway Pressure (ICD-10-PCS; 2017-10-21)
PROC: 5A09357 Assistance with Respiratory Ventilation, Less than 24 Consecutive Hours, Continuous Positive Airway Pressure (ICD-10-PCS; 2017-10-22)
DX: T82.855A Stenosis of coronary artery stent, initial encounter (principal); I21.4 Non-ST elevation (NSTEMI) myocardial infarction; E11.40 Type 2 diabetes mellitus with diabetic neuropathy, unspecified; I25.110 Atherosclerotic heart disease of native coronary artery with unstable angina pectoris; E66.9 Obesity, unspecified; E78.5 Hyperlipidemia, unspecified; I10 Essential (primary) hypertension; N28.9 Disorder of kidney and ureter, unspecified; I08.0 Rheumatic disorders of both mitral and aortic valves; Y83.1 Surgical operation with implant of artificial internal device as the cause of abnormal reaction of the patient, or of later complication, without mention of misadventure at the time of the procedure; Z68.33 Body mass index [BMI] 33.0-33.9, adult; Z79.4 Long term (current) use of insulin
CPT/HCPCS: 36415; 36600; 71045; 80048; 80053; 81001; 82565; 82805; 82962; 83036; 83735; 84100; 84132; 84484; 85025; 85576; 85610; 85730; 86850; 86900; 86901; 86920; 87070; 87081; 87205; 93005; 93306; 93970; 94002; 94003; 94640; 94660; 99152; C1751; C1768; C9113; J0131; J0153; J0461; J0610; J1100; J1642; J1644; J1815; J2250; J2405; J2440; J2704; J3480; J7060; P9047; Q9956; Q9967

== ENCOUNTER → 2017-12-09 | Outpatient (CLI) | payer BC ==
[~2017-12-09] MED LIST changes: +ATOR1TAB PO; -ATOR40TA52 PO
[2017-12-09 15:12] LABS: Basophils # (auto) 0.1 uL; Basophils % (auto) 0.6 % (0.0-2.0); Eosinophils # (auto) 0.8 uL; Eosinophils % (auto) 8.2 % (0.0-7.0); Hemoglobin 13.6 g/dL (13.5-17.5); Lymphocytes # (auto) 2.1 uL; Lymphocytes % (auto) 22.7 % (10.0-50.0); Mean Corpuscular Hgb Conc. 33.2 g/dL (32.0-36.0); Mean Corpuscular Volume 87.2 fL (80.0-100.0); Monocytes # (auto) 0.6 uL; Monocytes % (auto) 6.2 % (0.0-12.0); Neutrophils # (auto) 5.8 uL; Neutrophils % (auto) 62.3 % (37.0-80.0); Nucleated Red Blood Cells % 0.1 %; Platelet Count (auto) 231 10^3/uL (140-450); Red Blood Cells 4.71 10^6/uL (4.5-5.90); White Blood Cell 9.3 10^3/uL (4.4-10.8)
[2017-12-09 15:53] LABS: Albumin 4.2 g/dL (3.4-5.0); BUN/Creatinine Ratio 23.1; Bilirubin, Total 0.4 mg/dL (0.2-1.0); Calcium 9.5 mg/dL (8.5-10.1); Total Protein 8.3 g/dL (6.4-8.2)
== END | disposition home or self-care (01) ==
LOC: LAB 14:48
PROVIDERS: ATTEND Internal Medicine
DX: E11.9 Type 2 diabetes mellitus without complications (principal); I25.10 Atherosclerotic heart disease of native coronary artery without angina pectoris; I10 Essential (primary) hypertension; E78.5 Hyperlipidemia, unspecified; Z79.4 Long term (current) use of insulin
CPT/HCPCS: 36415; 80053; 82785; 84439; 84443; 85025

== ENCOUNTER → 2018-01-04 | Outpatient (CLI) | payer BC | END | disposition home or self-care (01) | LOC: XYW 14:40 | PROVIDERS: ATTEND Thoracic Surgery (Cardiothoracic Vascular Surgery) | DX: S81.809A Unspecified open wound, unspecified lower leg, initial encounter (principal); I25.10 Atherosclerotic heart disease of native coronary artery without angina pectoris; I10 Essential (primary) hypertension; E78.5 Hyperlipidemia, unspecified; E78.00 Pure hypercholesterolemia, unspecified; E11.21 Type 2 diabetes mellitus with diabetic nephropathy; Z95.1 Presence of aortocoronary bypass graft; X58.XXXA Exposure to other specified factors, initial encounter; Y93.89 Activity, other specified; Y92.89 Other specified places as the place of occurrence of the external cause; Y99.8 Other external cause status | CPT/HCPCS: 93926 ==

== ENCOUNTER → 2018-03-10 | Outpatient (CLI) | payer BC ==
[2018-03-10 10:28] LABS: Cholesterol 121 mg/dL (< 200); HDL Cholesterol 43 mg/dL (40-59); LDL Cholesterol 71 mg/dL (< 100); Triglycerides 142 mg/dL (< 150)
== END | disposition home or self-care (01) ==
LOC: LAB 09:30
PROVIDERS: ATTEND Internal Medicine
DX: I10 Essential (primary) hypertension (principal); E11.9 Type 2 diabetes mellitus without complications; Z79.82 Long term (current) use of aspirin
CPT/HCPCS: 36415; 80061; 83036

== ENCOUNTER → 2018-09-13 | Outpatient (CLI) | payer BC | END | disposition home or self-care (01) | LOC: LAB 13:58 | PROVIDERS: ATTEND Internal Medicine | DX: E11.9 Type 2 diabetes mellitus without complications (principal); R35.1 Nocturia | CPT/HCPCS: 36415; 83036; 84153; 84443 ==

== ENCOUNTER → 2019-01-16 | Outpatient (CLI) | payer BC ==
[2019-01-16 07:52] LABS: Basophils # (auto) 0 uL; Basophils % (auto) 0.5 % (0.0-2.0); Eosinophils # (auto) 0.4 uL; Eosinophils % (auto) 4.5 % (0.0-7.0); Hematocrit 48.3 % (41.0-53.0); Hemoglobin 16.2 g/dL (13.5-17.5); Lymphocytes # (auto) 2.6 uL; Mean Corpuscular Hgb Conc. 33.6 g/dL (32.0-36.0); Mean Corpuscular Volume 86.4 fL (80.0-100.0); Monocytes # (auto) 0.7 uL; Monocytes % (auto) 7.3 % (0.0-12.0); Neutrophils # (auto) 5.9 uL; Neutrophils % (auto) 60.7 % (37.0-80.0); Platelet Count (auto) 186 10^3/uL (140-450); Red Blood Cells 5.59 10^6/uL (4.5-5.90); Red Cell Distribution Width 14.2 % (11.8-14.3); White Blood Cell 9.7 10^3/uL (4.4-10.8)
[2019-01-16 08:11] LABS: Calcium 8.8 mg/dL (8.5-10.1); Chloride 104 mmol/L (98-107); Potassium 4.7 mmol/L (3.5-5.1); Sodium 138 mmol/L (136-145)
[2019-01-16 08:15] LABS: Alanine Aminotransferase 27 U/L (16-61); Albumin 3.8 g/dL (3.4-5.0); Amylase 85 U/L (25-115); Anion Gap 7 (5-15); Aspartate Aminotransferase 14 U/L (15-37); BUN/Creatinine Ratio 14.3; Blood Urea Nitrogen 16 mg/dL (7-18); Carbon Dioxide 27 mmol/L (21-32); GFR African American 85 mL/min; GFR Non-African American 70 mL/min; Glucose 315 mg/dL (74-106); Lipase 514 U/L (73-393)
[2019-01-16 08:17] LABS: Alkaline Phosphatase 123 U/L (45-117); Bilirubin, Total 0.7 mg/dL (0.2-1.0); Total Protein 7.9 g/dL (6.4-8.2)
== END | disposition home or self-care (01) ==
LOC: LAB 07:32
PROVIDERS: ATTEND Internal Medicine
DX: E11.9 Type 2 diabetes mellitus without complications (principal); K52.9 Noninfective gastroenteritis and colitis, unspecified
CPT/HCPCS: 36415; 80053; 82150; 83036; 83690; 85025

== ENCOUNTER → 2019-04-30 | Outpatient (CLI) | payer BC ==
[~2019-04-30] MED LIST changes: -GLIP-116 PO; +GLIP10TA9 PO
[2019-04-30 12:01] LABS: Cholesterol 112 mg/dL (< 200); HDL Cholesterol 42 mg/dL (40-59); LDL Cholesterol 64 mg/dL (< 100); Triglycerides 72 mg/dL (< 150)
== END | disposition home or self-care (01) ==
LOC: LAB 10:18
PROVIDERS: ATTEND Internal Medicine
DX: E11.9 Type 2 diabetes mellitus without complications (principal)
CPT/HCPCS: 36415; 80061; 82607; 83036

== ENCOUNTER → 2019-07-30 | Outpatient (CLI) | payer BC ==
[2019-07-30 16:03] LABS: Basophils # (auto) 0 uL; Basophils % (auto) 0.4 % (0.0-2.0); Eosinophils # (auto) 0.5 uL; Eosinophils % (auto) 5.3 % (0.0-7.0); Hematocrit 44.4 % (41.0-53.0); Hemoglobin 15.4 g/dL (13.5-17.5); Lymphocytes # (auto) 2.5 uL; Lymphocytes % (auto) 29.1 % (10.0-50.0); Mean Corpuscular Hemoglobin 29.8 pg (28.0-32.0); Mean Corpuscular Hgb Conc. 34.6 g/dL (32.0-36.0); Mean Corpuscular Volume 86.2 fL (80.0-100.0); Monocytes # (auto) 0.7 uL; Monocytes % (auto) 7.7 % (0.0-12.0); Neutrophils # (auto) 4.9 uL; Neutrophils % (auto) 57.5 % (37.0-80.0); Nucleated Red Blood Cells % 0.1 %; Platelet Count (auto) 191 10^3/uL (140-450); Red Blood Cells 5.15 10^6/uL (4.5-5.90); Red Cell Distribution Width 14.2 % (11.8-14.3); White Blood Cell 8.5 10^3/uL (4.4-10.8)
[2019-07-30 16:22] LABS: Albumin 3.8 g/dL (3.4-5.0); Potassium 4.3 mmol/L (3.5-5.1)
[2019-07-30 16:25] LABS: BUN/Creatinine Ratio 15.2; Bilirubin, Total 0.4 mg/dL (0.2-1.0); Total Protein 7.8 g/dL (6.4-8.2)
== END | disposition home or self-care (01) ==
LOC: LAB 15:43
PROVIDERS: ATTEND Internal Medicine
DX: J40 Bronchitis, not specified as acute or chronic (principal); K59.00 Constipation, unspecified; R10.9 Unspecified abdominal pain
CPT/HCPCS: 36415; 80053; 82150; 83036; 83690; 84439; 84443; 85025

== ENCOUNTER → 2019-08-01 | Outpatient (CLI) | payer BC ==
[2019-08-01 11:20] LABS: Basophils # (auto) 0 uL; Basophils % (auto) 0.4 % (0.0-2.0); Eosinophils # (auto) 0.5 uL; Eosinophils % (auto) 5.7 % (0.0-7.0); Hematocrit 45.8 % (41.0-53.0); Hemoglobin 15.8 g/dL (13.5-17.5); Lymphocytes # (auto) 2.4 uL; Lymphocytes % (auto) 27.9 % (10.0-50.0); Mean Corpuscular Hemoglobin 29.6 pg (28.0-32.0); Mean Corpuscular Hgb Conc. 34.4 g/dL (32.0-36.0); Monocytes # (auto) 0.6 uL; Monocytes % (auto) 7.5 % (0.0-12.0); Neutrophils % (auto) 58.5 % (37.0-80.0); Platelet Count (auto) 200 10^3/uL (140-450); Red Blood Cells 5.33 10^6/uL (4.5-5.90); Red Cell Distribution Width 14.2 % (11.8-14.3); White Blood Cell 8.6 10^3/uL (4.4-10.8)
[2019-08-01 11:37] LABS: Potassium 3.9 mmol/L (3.5-5.1)
[2019-08-01 11:55] LABS: Albumin 3.8 g/dL (3.4-5.0); BUN/Creatinine Ratio 13.7; Bilirubin, Total 0.7 mg/dL (0.2-1.0); Calcium 8.9 mg/dL (8.5-10.1); Total Protein 8.1 g/dL (6.4-8.2)
== END | disposition home or self-care (01) ==
LOC: LAB 10:07
PROVIDERS: ATTEND Internal Medicine
DX: R74.8 Abnormal levels of other serum enzymes (principal); R10.9 Unspecified abdominal pain; J06.9 Acute upper respiratory infection, unspecified
CPT/HCPCS: 36415; 80053; 82150; 83690; 85025

== ENCOUNTER → 2020-03-17 | Outpatient (CLI) | payer BC ==
[2020-03-17 09:51] LABS: Basophils # (auto) 0 10 ^3/uL (0-0.2); Basophils % (auto) 0.5 % (0.0-2.0); Eosinophils # (auto) 0.5 10 ^3/uL (0-0.8); Eosinophils % (auto) 5.8 % (0.0-7.0); Hematocrit 43.9 % (41.0-53.0); Hemoglobin 14.7 g/dL (13.5-17.5); Lymphocytes # (auto) 2.4 10 ^3/uL (0.4-5.4); Lymphocytes % (auto) 26.5 % (10.0-50.0); Mean Corpuscular Hemoglobin 28.8 pg (28.0-32.0); Mean Corpuscular Hgb Conc. 33.5 g/dL (32.0-36.0); Monocytes # (auto) 0.6 10 ^3/uL (0-1.3); Monocytes % (auto) 6.7 % (0.0-12.0); Neutrophils # (auto) 5.5 10 ^3/uL (1.6-8.6); Neutrophils % (auto) 60.5 % (37.0-80.0); Nucleated Red Blood Cells % 0.1 %; Platelet Count (auto) 205 10^3/uL (140-450); Red Blood Cells 5.11 10^6/uL (4.5-5.90); Red Cell Distribution Width 14.6 % (11.8-14.3)
[2020-03-17 09:55] LABS: Urine Bacteria NONE SEEN /hpf (None Seen); Urine Blood Negative /uL (Negative); Urine Mucus FEW (None Seen); Urine Specific Gravity 1.019 (1.001-1.035); Urine WBC 1 /hpf (0 - 3)
[2020-03-17 10:45] LABS: Free T4 (Free Thyroxine) 0.98 ng/dL (0.89-1.76)
[2020-03-17 10:46] LABS: Prostate Specific Antigen 0.68 ng/mL (0.0-4.0)
[2020-03-17 11:06] LABS: Potassium 4.2 mmol/L (3.5-5.1)
[2020-03-17 11:17] LABS: Albumin 3.7 g/dL (3.4-5.0); BUN/Creatinine Ratio 14.4; Bilirubin, Total 0.6 mg/dL (0.2-1.0); Calcium 8.9 mg/dL (8.5-10.1); Total Protein 7.6 g/dL (6.4-8.2)
== END | disposition home or self-care (01) ==
LOC: LAB 09:12
PROVIDERS: ATTEND Internal Medicine
DX: Z12.5 Encounter for screening for malignant neoplasm of prostate (principal); I10 Essential (primary) hypertension; E11.9 Type 2 diabetes mellitus without complications; I25.10 Atherosclerotic heart disease of native coronary artery without angina pectoris
CPT/HCPCS: 36415; 80053; 80061; 81001; 82043; 82607; 83036; 84153; 84439; 84443; 85025; 85652

== ENCOUNTER → 2020-04-16 | Outpatient (CLI) | payer BC | END | disposition home or self-care (01) | LOC: LAB 09:52 | PROVIDERS: ATTEND Nurse Practitioner Family | DX: U07.1 COVID-19 (principal) ==

== ENCOUNTER → 2020-06-02 | Outpatient (CLI) | payer BC ==
[2020-06-02 12:05] LABS: Basophils # (auto) 0 10 ^3/uL (0-0.2); Basophils % (auto) 0.4 % (0.0-2.0); Eosinophils # (auto) 0.4 10 ^3/uL (0-0.8); Hematocrit 43.8 % (41.0-53.0); Lymphocytes # (auto) 2.5 10 ^3/uL (0.4-5.4); Lymphocytes % (auto) 23.7 % (10.0-50.0); Mean Corpuscular Hemoglobin 29.6 pg (28.0-32.0); Mean Corpuscular Hgb Conc. 34.3 g/dL (32.0-36.0); Mean Corpuscular Volume 86.1 fL (80.0-100.0); Monocytes # (auto) 0.6 10 ^3/uL (0-1.3); Monocytes % (auto) 5.7 % (0.0-12.0); Neutrophils # (auto) 6.9 10 ^3/uL (1.6-8.6); Neutrophils % (auto) 66.2 % (37.0-80.0); Nucleated Red Blood Cells % 0.1 %; Platelet Count (auto) 218 10^3/uL (140-450); Red Blood Cells 5.08 10^6/uL (4.5-5.90); Red Cell Distribution Width 15.3 % (11.8-14.3); White Blood Cell 10.4 10^3/uL (4.4-10.8)
[2020-06-02 12:40] LABS: Potassium 4.3 mmol/L (3.5-5.1)
[2020-06-02 12:54] LABS: Albumin 3.8 g/dL (3.4-5.0); BUN/Creatinine Ratio 16.5; Bilirubin, Total 0.7 mg/dL (0.2-1.0); Calcium 8.5 mg/dL (8.5-10.1); Total Protein 7.9 g/dL (6.4-8.2)
== END | disposition home or self-care (01) ==
LOC: LAB 11:48
PROVIDERS: ATTEND Internal Medicine
DX: E11.21 Type 2 diabetes mellitus with diabetic nephropathy (principal); R07.89 Other chest pain; Z86.19 Personal history of other infectious and parasitic diseases
CPT/HCPCS: 36415; 80053; 83036; 85025; 85379; 85652

== ENCOUNTER → 2020-07-15 | Outpatient (CLI) | payer BC | END | disposition home or self-care (01) | LOC: LAB 11:33 | PROVIDERS: ATTEND Internal Medicine | DX: I10 Essential (primary) hypertension (principal); M79.18 Myalgia, other site | CPT/HCPCS: 36415; 82565; 84520 ==

== ENCOUNTER → 2021-06-02 | Outpatient (CLI) | payer OTHER ==
[~2021-06-02] MED LIST changes: -ASPI-231 PO; +ASPI1TAB20 PO; +ATOR-47 PO; -ATOR1TAB PO
== END | disposition home or self-care (01) ==
LOC: XY 09:56
PROVIDERS: ATTEND Internal Medicine
DX: I65.23 Occlusion and stenosis of bilateral carotid arteries (principal); I25.10 Atherosclerotic heart disease of native coronary artery without angina pectoris; E11.9 Type 2 diabetes mellitus without complications
CPT/HCPCS: 93886

== ENCOUNTER → 2021-08-20 | Outpatient (CLI) | payer OTHER | END | disposition home or self-care (01) | LOC: LAB 08:12 | PROVIDERS: ATTEND Internal Medicine | DX: E11.9 Type 2 diabetes mellitus without complications (principal); I10 Essential (primary) hypertension | CPT/HCPCS: 36415; 83036 ==

== ENCOUNTER → 2021-12-15 | Outpatient (CLI) | payer OTHER ==
[2021-12-15 11:52] LABS: Basophils # (auto) 0 10 ^3/uL (0-0.2); Basophils % (auto) 0.5 % (0.0-2.0); Eosinophils # (auto) 0.4 10 ^3/uL (0-0.8); Eosinophils % (auto) 4.7 % (0.0-7.0); Hematocrit 40.8 % (41.0-53.0); Hemoglobin 13.8 g/dL (13.5-17.5); Lymphocytes # (auto) 2.1 10 ^3/uL (0.4-5.4); Lymphocytes % (auto) 24.8 % (10.0-50.0); Mean Corpuscular Hemoglobin 29.1 pg (28.0-32.0); Mean Corpuscular Hgb Conc. 33.7 g/dL (32.0-36.0); Mean Corpuscular Volume 86.2 fL (80.0-100.0); Monocytes # (auto) 0.5 10 ^3/uL (0-1.3); Monocytes % (auto) 6.2 % (0.0-12.0); Neutrophils # (auto) 5.4 10 ^3/uL (1.6-8.6); Neutrophils % (auto) 63.8 % (37.0-80.0); Red Blood Cells 4.73 10^6/uL (4.5-5.90); White Blood Cell 8.4 10^3/uL (4.4-10.8)
[2021-12-15 11:57] LABS: Urine Bacteria NONE SEEN /hpf (None Seen); Urine Blood Negative /uL (Negative); Urine Mucus FEW (None Seen); Urine Specific Gravity 1.021 (1.001-1.035); Urine WBC <1 /hpf (0 - 3)
[2021-12-15 12:38] LABS: Potassium 4.7 mmol/L (3.5-5.1)
[2021-12-15 12:44] LABS: Free T4 (Free Thyroxine) 1.09 ng/dL (0.89-1.76)
[2021-12-15 12:51] LABS: Albumin 3.5 g/dL (3.4-5.0); Bilirubin, Total 0.5 mg/dL (0.2-1.0); Calcium 9.1 mg/dL (8.5-10.1); Total Protein 7.4 g/dL (6.4-8.2)
== END | disposition home or self-care (01) ==
LOC: LAB 11:15
PROVIDERS: ATTEND Internal Medicine
DX: I10 Essential (primary) hypertension (principal); E11.9 Type 2 diabetes mellitus without complications
CPT/HCPCS: 36415; 80053; 80061; 81001; 82043; 82607; 83036; 84439; 84443; 85025; 85652

== ENCOUNTER → 2022-06-01 | Outpatient (CLI) | payer OTHER ==
[2022-06-01 11:49] LABS: Basophils # (auto) 0 10 ^3/uL (0-0.2); Basophils % (auto) 0.4 % (0.0-2.0); Eosinophils # (auto) 0.5 10 ^3/uL (0-0.8); Eosinophils % (auto) 5.7 % (0.0-7.0); Hematocrit 44.5 % (41.0-53.0); Hemoglobin 14.7 g/dL (13.5-17.5); Lymphocytes # (auto) 2.3 10 ^3/uL (0.4-5.4); Lymphocytes % (auto) 24.1 % (10.0-50.0); Mean Corpuscular Hemoglobin 28.5 pg (28.0-32.0); Mean Corpuscular Hgb Conc. 33.1 g/dL (32.0-36.0); Mean Corpuscular Volume 86.2 fL (80.0-100.0); Monocytes # (auto) 0.6 10 ^3/uL (0-1.3); Neutrophils % (auto) 63.8 % (37.0-80.0); Red Blood Cells 5.16 10^6/uL (4.5-5.90); White Blood Cell 9.5 10^3/uL (4.4-10.8)
[2022-06-01 12:42] LABS: Albumin 3.8 g/dL (3.4-5.0); BUN/Creatinine Ratio 19.2; Bilirubin, Total 0.8 mg/dL (0.2-1.0); Potassium 4.6 mmol/L (3.5-5.1); Total Protein 7.7 g/dL (6.4-8.2)
== END | disposition home or self-care (01) ==
LOC: LAB 11:33
PROVIDERS: ATTEND Internal Medicine
DX: I25.10 Atherosclerotic heart disease of native coronary artery without angina pectoris (principal); I10 Essential (primary) hypertension; E11.9 Type 2 diabetes mellitus without complications
CPT/HCPCS: 36415; 80053; 83036; 84153; 84443; 85025

== ENCOUNTER → 2022-11-01 | Outpatient (CLI) | payer OTHER ==
[2022-11-01 12:22] LABS: Basophils # (auto) 0 10 ^3/uL (0-0.2); Basophils % (auto) 0.5 % (0.0-2.0); Eosinophils # (auto) 0.5 10 ^3/uL (0-0.8); Eosinophils % (auto) 5.1 % (0.0-7.0); Hematocrit 42.5 % (41.0-53.0); Hemoglobin 14.5 g/dL (13.5-17.5); Lymphocytes % (auto) 19.3 % (10.0-50.0); Mean Corpuscular Hemoglobin 28.6 pg (28.0-32.0); Mean Corpuscular Hgb Conc. 34.1 g/dL (32.0-36.0); Mean Corpuscular Volume 84.1 fL (80.0-100.0); Monocytes # (auto) 0.7 10 ^3/uL (0-1.3); Monocytes % (auto) 6.9 % (0.0-12.0); Neutrophils # (auto) 6.9 10 ^3/uL (1.6-8.6); Neutrophils % (auto) 68.2 % (37.0-80.0); Red Blood Cells 5.05 10^6/uL (4.5-5.90); Red Cell Distribution Width 14.8 % (11.8-14.3); White Blood Cell 10.1 10^3/uL (4.4-10.8)
[2022-11-01 12:29] LABS: Urine Bacteria NONE SEEN /hpf (None Seen); Urine Blood 2+ /uL (Negative); Urine Mucus FEW (None Seen); Urine Specific Gravity 1.031 (1.001-1.035); Urine WBC 1 /hpf (0 - 3)
[2022-11-01 13:00] LABS: Free T4 (Free Thyroxine) 1.09 ng/dL (0.89-1.76)
[2022-11-01 13:29] LABS: Potassium 3.6 mmol/L (3.5-5.1)
[2022-11-01 13:35] LABS: Albumin 3.5 g/dL (3.4-5.0); BUN/Creatinine Ratio 20.9 (10.0-20.0); Calcium 8.9 mg/dL (8.5-10.1)
[2022-11-01 13:48] LABS: Bilirubin, Total 0.5 mg/dL (0.2-1.0); Total Protein 7.5 g/dL (6.4-8.2)
[2022-11-02 15:12] LABS: Creatinine, Urine 269 mg/dL (30.0-125.0)
[2022-11-02 15:56] LABS: Micro Albumin 1770 mg/L (0-30.0)
== END | disposition home or self-care (01) ==
LOC: LAB 11:06
PROVIDERS: ATTEND Internal Medicine
DX: I10 Essential (primary) hypertension (principal); I25.10 Atherosclerotic heart disease of native coronary artery without angina pectoris; E11.9 Type 2 diabetes mellitus without complications
CPT/HCPCS: 36415; 80053; 80061; 81001; 82043; 82570; 82607; 84439; 84443; 85025; 85652

== ENCOUNTER → 2023-06-22 | Outpatient (CLI) | payer OTHER ==
[2023-06-22 11:04] LABS: Basophils # (auto) 0 10 ^3/uL (0-0.2); Basophils % (auto) 0.4 % (0.0-2.0); Eosinophils # (auto) 0.8 10 ^3/uL (0-0.8); Eosinophils % (auto) 7.5 % (0.0-7.0); Hematocrit 42.4 % (41.0-53.0); Hemoglobin 14.3 g/dL (13.5-17.5); Lymphocytes # (auto) 3.3 10 ^3/uL (0.4-5.4); Lymphocytes % (auto) 30.1 % (10.0-50.0); Mean Corpuscular Hemoglobin 29.1 pg (28.0-32.0); Mean Corpuscular Hgb Conc. 33.7 g/dL (32.0-36.0); Mean Corpuscular Volume 86.5 fL (80.0-100.0); Monocytes # (auto) 0.6 10 ^3/uL (0-1.3); Monocytes % (auto) 5.9 % (0.0-12.0); Neutrophils # (auto) 6.1 10 ^3/uL (1.6-8.6); Neutrophils % (auto) 56.1 % (37.0-80.0); Nucleated Red Blood Cells % 0.1 %; Red Cell Distribution Width 14.7 % (11.8-14.3); White Blood Cell 10.9 10^3/uL (4.4-10.8)
[2023-06-22 12:16] LABS: Alanine Aminotransferase 17 U/L (7-40); Albumin 4.5 g/dL (3.2-4.8); Alkaline Phosphatase 90 U/L (46-116); Anion Gap 7 (5-15); Aspartate Aminotransferase 12 U/L (13-40); BUN/Creatinine Ratio 13.1 (10.0-20.0); Blood Urea Nitrogen 13 mg/dL (9-23); Calcium 9.3 mg/dL (8.7-10.4); Carbon Dioxide 27 mmol/L (20-30); Chloride 106 mmol/L (98-107); Glucose 98 mg/dL (74-106); Potassium 4.3 mmol/L (3.5-5.1); Sodium 140 mmol/L (136-145)
[2023-06-22 12:17] LABS: Bilirubin, Total 0.6 mg/dL (0.2-1.0); Total Protein 7.2 g/dL (5.7-8.2)
== END | disposition home or self-care (01) ==
LOC: LAB 10:41
PROVIDERS: ATTEND Internal Medicine
DX: I25.10 Atherosclerotic heart disease of native coronary artery without angina pectoris (principal); E11.9 Type 2 diabetes mellitus without complications; E78.5 Hyperlipidemia, unspecified
CPT/HCPCS: 36415; 80053; 83036; 84153; 85025

== ENCOUNTER → 2023-11-15 | Outpatient (CLI) | payer OTHER | END | disposition home or self-care (01) | LOC: XYW 11:53 | PROVIDERS: ATTEND Student in an Organized Health Care Education/Training Program | DX: I25.810 Atherosclerosis of coronary artery bypass graft(s) without angina pectoris (principal); E78.5 Hyperlipidemia, unspecified; E11.65 Type 2 diabetes mellitus with hyperglycemia; I10 Essential (primary) hypertension; I70.0 Atherosclerosis of aorta | CPT/HCPCS: 78452; 93017 ==

== ENCOUNTER → 2023-11-17 | Outpatient (CLI) | payer OTHER | END | disposition home or self-care (01) | LOC: XYW 07:48 | PROVIDERS: ATTEND Student in an Organized Health Care Education/Training Program | DX: I08.0 Rheumatic disorders of both mitral and aortic valves (principal); I25.810 Atherosclerosis of coronary artery bypass graft(s) without angina pectoris | CPT/HCPCS: 93306 ==

== ENCOUNTER 2025-02-11 10:53 | Outpatient (CLI) | payer OTHER ==
[2025-02-11 11:50] LABS: Hematocrit 43.5 % (41.0-53.0); Hemoglobin 15.0 g/dL (13.5-17.5); Mean Corpuscular Hemoglobin 29.6 pg (28.0-32.0); Mean Corpuscular Volume 86.0 fL (80.0-100.0); Nucleated Red Blood Cells % 0.0 %
[2025-02-11 12:02] LABS: Urine Protein, UAD 1+ (Negative)
[2025-02-11 12:10] LABS: Alanine Aminotransferase 16 U/L (7-40); Alkaline Phosphatase 83 U/L (46-116); Anion Gap 10 (5-15); Carbon Dioxide 27 mmol/L (20-31); Chloride 104 mmol/L (98-107); Potassium 5.0 mmol/L (3.5-5.1); Sodium 141 mmol/L (136-145)
[2025-02-11 12:11] LABS: BUN/Creatinine Ratio 12.5 (10.0-20.0); Blood Urea Nitrogen 15 mg/dL (9-23); Total Protein 7.4 g/dL (5.7-8.2); Triglycerides 87 mg/dL (< 150)
[2025-02-11 12:12] LABS: Bilirubin, Total 0.8 mg/dL (0.2-1.0); Cholesterol 106 mg/dL (< 200)
[2025-02-11 12:16] LABS: Calcium 10.5 mg/dL (8.7-10.4); Glucose 110 mg/dL (74-106)
[2025-02-11 12:17] LABS: Albumin 4.8 g/dL (3.2-4.8); HDL Cholesterol 37 mg/dL (40-59)
[2025-02-11 12:28] LABS: Microalb/Creat Ratio, Urine 386.0
[2025-02-11 13:34] LABS: Prostate Specific Antigen 0.85 ng/mL (0.0-4.0)
[2025-02-11 13:37] LABS: Free T4 (Free Thyroxine) 1.13 ng/dL (0.89-1.76)
== END 2025-02-11 17:00 | disposition home or self-care (01) ==
LOC: LAB 10:53
PROVIDERS: ATTEND Internal Medicine
DX: I10 Essential (primary) hypertension (principal); E11.9 Type 2 diabetes mellitus without complications
CPT/HCPCS: 36415; 80053; 80061; 81001; 82043; 82570; 82607; 84153; 84439; 84443; 85025; 85379; 85652